=== PATIENT | male | born 1965 | race African-American/Black ===

== ENCOUNTER 2017-06-27 14:24 | Inpatient (IN) | payer OTHER ==
[2017-06-27 14:34] VITALS: BMI 36.9
--- NOTE | 2017-06-27 14:47 | PDOC ---
Attending Attestation - Resident Resident Name: Tuan Arzate - ED Attending Attestation I have performed the following: I have examined & evaluated the patient, The case was reviewed & discussed with the resident, I agree w/resident's findings & plan, Exceptions are as noted - HPI HPI: 06/27/17 14:46 Chest Pain - Physicial Exam PE: 06/27/17 14:46 VSS/NAD - Medical Decision Making 06/27/17 14:[address] Arzate's Assessment and Plan
[2017-06-27 15:30] LABS: BASO # 0.1 # (0.1-1); EOS # 0.2 # (0-4.5); EOS % 2.8 % (0-4.5); LYMPH # 2.9 (8-40); MCH 27.4 pg (25.7-33.7); MCHC 32.5 g/dl (32.0-35.9); MEAN CELL VOLUME 84.1 fl (80-96); MEAN PLT VOLUME 10.1 fl (7.5-11.1); MONO # 0.8 # (3.8-10.2); NEUT # 4.1 # (42.8-82.8); NEUT % 50.4 % (42.8-82.8); RDW 15.4 % (11.9-15.9); WHITE BLOOD COUNT 8.2 K/mm3 (4.0-10.0)
--- NOTE | 2017-06-27 15:46 | PDOC ---
History of Present Illness - General Chief Complaint: Chest Pain Stated Complaint: CHEST PAIN, LT ARM NUMBNESS Time Seen by Provider: 06/27/17 14:42 History Source: Patient Exam Limitations: No Limitations - History of Present Illness Initial Comments: 06/27/17 15:40 The patient is a 52M with a PMH of COPD and DM who presents to the ED with 3 days of CP which radiates to his L shoulder. He states that he also has night sweats along with mild SOB. He denies fever, chills, nausea, vomiting. Past History - Past Medical History Allergies/Adverse Reactions: Allergies Allergy/AdvReac Type Severity Reaction Status Date / Time No Known Allergies Allergy Verified 06/27/17 14:28 Home Medications: Ambulatory Orders Aspirin [ASA -] 81 mg PO DAILY 09/26/15 Asthma: Yes Cardiac Disorders: Yes (CO) COPD: Yes Diabetes: Yes - Immunization History Immunization Up to Date: Yes - Suicide/Smoking/Psychosocial Hx Smoking History: Never smoked Have you smoked in the past 12 months: No If you are a former smoker, when did you quit?: 4 years Information on smoking cessation initiated: No Hx Alcohol Use: No Drug/Substance Use Hx: No Substance Use Type: None Hx Substance Use Treatment: No Review of Systems - Review of Systems Able to Perform ROS?: Yes Comments:: 06/27/17 15:43 GENERAL/CONSTITUTIONAL: No fever or chills. No weakness. HEAD, EYES, EARS, NOSE AND THROAT: No change in vision. No ear pain or discharge. No sore throat. GASTROINTESTINAL: No nausea, vomiting, diarrhea, constipation, or abdominal pain. GENITOURINARY: No dysuria, frequency, hematuria, or change in urination. CARDIOVASCULAR: Positive for chest pain which radiates to his L shoulder. No palpitations or lightheadedness. RESPIRATORY: Positive for mild SOB. No cough, wheezing, or hemoptysis. MUSCULOSKELETAL: No joint or muscle swelling or pain. No neck or back pain. SKIN: No rash or lesions. NEUROLOGIC: No headache, numbness, tingling, weakness, loss of consciousness, or change in strength/sensation. ENDOCRINE: No increased thirst. No abnormal weight change. HEMATOLOGIC/LYMPHATIC: No anemia, easy bleeding, or history of blood clots. ALLERGIC/IMMUNOLOGIC: No hives or skin allergy. Is the patient limited Egyptian proficient: No *Physical Exam - Vital Signs Last Vital Signs Temp Pulse Resp BP Pulse Ox 98.2 F 70 20 140/78 97 06/27/17 14:29 06/27/17 14:29 06/27/17 14:29 06/27/17 14:29 06/27/17 14:29 - Physical Exam Comments: 06/27/17 15:44 GENERAL: Well developed, well nourished. Awake and alert. No acute distress. HEENT: Normocephalic, atraumatic. Hearing grossly normal. Moist mucous membranes. PERRLA, EOMI. NECK: Supple. Full ROM. No JVD. Carotid pulses 2+ and symmetric, without bruits. No thyromegaly. No lymphadenopathy. CARDIOVASCULAR: Regular rate and rhythm. No murmurs, rubs, or gallops. Distal pulses are 2+ and symmetric. PULMONARY: No evidence of respiratory distress. Lungs clear to auscultation bilaterally. No wheezing, rales or rhonchi. ABDOMINAL: Soft. Non-tender. Non-distended. No rebound or guarding. No organomegaly. Normoactive bowel sounds. GENITOURINARY: No CVA tenderness bilaterally. MUSCULOSKELETAL: Normal range of motion at all joints. No bony deformities or tenderness. EXTREMITIES: No cyanosis. No clubbing. No edema. No calf tenderness. SKIN: Warm and dry. Normal capillary refill. No rashes. No jaundice. NEUROLOGICAL: Alert, awake, appropriate. Cranial nerves 2-12 intact. Normal speech. Gait is normal without ataxia. PSYCHIATRIC: Cooperative. Good eye contact. Appropriate mood and affect. ED Treatment Course - LABORATORY CBC & Chemistry Diagram: 06/27/17 15:20 06/27/17 15:20 - ADDITIONAL ORDERS Additional order review: 06/27/17 15:20 RBC 5.95 H MCV 84.1 MCHC 32.5 RDW 15.4 D MPV 10.1 Neutrophils % 50.4 D Lymphocytes % 35.8 D Monocytes % 10.0 Eosinophils % 2.8 D Basophils % 1.0 - RADIOLOGY Radiology Studies Ordered: Category Date Time Status CHEST PA & LAT [RAD] Stat Radiology 06/27/17 14:53 Completed Medical Decision Making - Medical Decision Making 06/27/17 15:46 The patient is a 52M with a PMH of COPD and DM who presents to the ED with 3 days of worsening CP which radiates to his L shoulder. He added that he has a PMH of an NSTEMI and came in because he was worried he was having another heart attack. I have ordered CBC, CMP, cardiac profile, and CXR. Will monitor the patient and watch for labs/imaging. 06/27/17 15:48 CXR negative for acute pathology. 06/27/17 16:09 Troponin increased 0.22 from 0[address]16. Will page Dr. Haile, partner of Dr. Kilgore , his hoisting engine operator. 06/27/17 17:40 I have spoken with the patient who used to see Dr. Cherry. Paged Dr. Sung who is covering. *DC/Admit/Observation/Transfer Diagnosis at time of Disposition: NSTEMI (non-ST elevated myocardial infarction) - Discharge Dispostion Condition at time of disposition: Stable Admit: Yes - Referrals - Patient Instructions - Post Discharge Activity
[2017-06-27 15:47] LABS: ALBUMIN 3.4 g/dl (3.4-5.0); ANION GAP 9 (8-16); BILIRUBIN,TOTAL 0.6 mg/dL (0.2-1.0); CALCIUM 8.7 mg/dL (8.5-10.1); CO2 23 mmol/L (21-32); CREATININE 1.3 mg/dL (0.7-1.3); GLUCOSE,RANDOM 100 mg/dL (74-106); SGOT/AST 18 U/L (15-37); SGPT/ALT 54 U/L (12-78); TOT PROT 7.7 g/dl (6.4-8.2)
[2017-06-27] MEDS ORDERED: KETOROLAC TROMETHAMINE 30 MG/1 ML VIAL IVPUSH ONE (15:48)
[2017-06-27 15:50] LABS: ALK PHOS 69 U/L (45-117); CPK 472 IU/L (39-308); TROPONIN I 0.22 ng/ml (0.00-0.05)
[2017-06-27 15:52] LABS: PLATELET COMMENTS NO CLUMPING NOTED; PLATELET COUNT 217 K/MM3 (134-434); PLATELET ESTIMATE ADEQUATE
[2017-06-27] MEDS ORDERED: KETOROLAC TROMETHAMINE 30 MG/1 ML VIAL ONE (15:52)
[2017-06-27] MEDS ORDERED: ASPIRIN COATED 81 MG TABLET.EC PO ONE (16:08)
[2017-06-27] MEDS ORDERED: NITROGLYCERIN 2% OINTMENT - 1GM PACKET TD ONE ×2 (16:08→16:27)
[2017-06-27] MEDS ORDERED: METOPROLOL TARTRATE 25 MG TABLET (FP) PO ONE (16:13)
[2017-06-27] MEDS ORDERED: ASPIRIN 81 MG CHEWABLE TABLETS ONE (16:26)
[2017-06-27] MEDS ORDERED: METOPROLOL TARTRATE 25 MG TABLET (FP) ONE (16:27)
[2017-06-28] MEDS ORDERED: ACETAMINOPHEN 500 MG TABLET (FP) PO PRN (00:01)
[2017-06-28 03:00] LABS: URINE MARIJUANA THC NEGATIVE ng/ml (CUTOFF=50)
[2017-06-28] MEDS: ASPIRIN 81 MG CHEWABLE TABLETS PO SCH (09:23)
[2017-06-28] MEDS: METOPROLOL SUCCINATE 25 MG TAB.SR.24H (FP) PO SCH ×2 (09:27→21:02)
[2017-06-28] MEDS ORDERED: METOPROLOL TARTRATE 25 MG TABLET (FP) PO SCH (10:00)
--- NOTE | 2017-06-28 11:06 | HP ---
Admitting History and Physical - Primary Care Physician PCP: Marcel Cherry - Admission Chief Complaint: I'm having chest pain History of Present Illness: Mr Ramos is a pleasant 52 year old male who comes in with chest pain and shortness of breath. 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 He says he recently increased his dose to 400 units per week. He took his first increased dose last week. 3 days ago he began to note chest pain with shortness of breath. He notes it mainly on exertion. He has never experienced this before. He noted that it was worsening and over the 3 days and came in for further evaluation. Aside from this he is doing well and denies all other complaints. 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 History of Recent Travel: No Home Medications - Allergies Allergies/Adverse Reactions: Allergies Allergy/AdvReac Type Severity Reaction Status Date / Time No Known Allergies Allergy Verified 06/27/17 14:28 - Home Medications Home Medications: Ambulatory Orders Aspirin [ASA -] 81 mg PO DAILY 09/26/15 Family Disease History - Family Disease History Family Disease History: Heart Disease: Sister Review of Systems Findings/Remarks: Full review of systems obtained, as per HPI and otherwise negative Physical Examination Vital Signs: Vital Signs Temperature 36.6 C 06/28/17 08:00 Pulse Rate 83 06/28/17 08:00 Respiratory Rate 20 06/28/17 09:00 Blood Pressure 145/78 06/28/17 09:21 O2 Sat by Pulse Oximetry (%) 97 06/28/17 09:00 Constitutional: Yes: Well Nourished, No Distress, Calm Cardiovascular: Yes: Regular Rate and Rhythm. No: Gallop, Murmur, Rub Respiratory: Yes: Regular, CTA Bilaterally. No: Rales, Rhonchi, Wheezes Gastrointestinal: Yes: Normal Bowel Sounds, Soft. No: Distention, Tenderness Extremities: Yes: WNL Edema: No Labs: CBC, BMP 06/27/17 15:20 06/27/17 15:20 Imaging - Results Chest X-ray: Report Reviewed, Image Reviewed Problem List - Problems (1) NSTEMI (non-ST elevated myocardial infarction) Assessment/Plan: -with elevated troponins, chest pain, and shortness of breath -last ECHO/stress test done last year and reviewed -concerning since using non-prescription testosterone -admitted to telemetry -cardiology consulted -ECHO ordered -placed on aspirin and metoprolol -not on statin, history of rhabdo Code(s): I21.4 - NON-ST ELEVATION (NSTEMI) MYOCARDIAL INFARCTION
--- NOTE | 2017-06-28 13:11 | EKG ---
Test Reason : Blood Pressure : / mmHG Vent. Rate : 070 BPM Atrial Rate : 070 BPM P-R Int : 140 ms QRS Dur : 088 ms QT Int : 352 ms P-R-T Axes : 088 043 -04 degrees QTc Int : 380 ms NORMAL SINUS RHYTHM WITH SINUS ARRHYTHMIA POSSIBLE LEFT ATRIAL ENLARGEMENT BORDERLINE ECG WHEN COMPARED WITH ECG OF 26-SEP-2015 20:59, NO SIGNIFICANT CHANGE WAS FOUND Confirmed by MD Alan, Kaden ([id number]) on 06/28/2017 1:10:51 PM Referred By: Confirmed By:Kaden Phillips MD
--- NOTE | 2017-06-28 14:48 | CON.CARD ---
Cardiology Consult (text) - Consultation Consultation Note: CC: CP 52 yo with h/o impaired glucose tolerance, chronic ck elevation p/w chest pain and shortness of breath and noted to have intermediate troponin elevation. 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 He says he recently increased his dose to 400 units per week. He took his first increased dose last week. 3 days ago he began to note chest pain with shortness of breath. He notes it at rest. It worsens with exertion. Progressive worsening. No improvement with nitrates. CP persists. Not reproducible to palpation. CP not positional. Additionally notes progressive exertional desai. States that about 1 month ago he noticed limiting sob walking up one flight of stairs. Now experiencing exertional dyspnea associated with his chest discomfort. Symptoms even if walking a few feet. no cp, palps, dizziness, orthopnea, pnd, le edema. no recent infectious sx's. no f/c/s, n/v/d, myalgias, cough, congestion, rashes , visual disturbances, h/a. pmhx/Pshx: per hpi social hx: Former smoker fam hx: Mother of [place] in her 70's. Sister had bypass surgery at 57yo ros: per hpi Ambulatory Orders Aspirin [ASA -] 81 mg PO DAILY 09/26/15 Current Medications Acetaminophen (Tylenol -) 1,000 mg PO Q6H PRN PRN Reason: FEVER OR PAIN Last Admin: 06/28/17 09:22 Dose: 1,000 mg Aspirin (Asa -) 81 mg PO DAILY [facility] Last Admin: 06/28/17 09:23 Dose: 81 mg Metoprolol Succinate (Toprol Xl -) 25 mg PO BID [facility] Last Admin: 06/28/17 09:27 Dose: 25 mg Vital Signs - 24 hr 06/27/17 06/27/17 06/27/17 16:35 18:48 20:36 Temperature 98.2 F Pulse Rate Pulse Rate [ 59 L 71 Apical] Respiratory 16 16 Rate Blood Pressure Blood Pressure 132/84 146/79 [Left Arm] O2 Sat by Pulse 99 99 95 Oximetry (%) 06/27/17 06/27/17 06/28/17 21:00 23:05 08:00 Temperature 97.7 F 97.8 F 98 F Pulse Rate 68 62 83 Pulse Rate [ Apical] Respiratory 20 20 20 Rate Blood Pressure 154/87 147/65 162/100 Blood Pressure [Left Arm] O2 Sat by Pulse Oximetry (%) 06/28/17 06/28/17 06/28/17 09:00 09:18 09:21 Temperature Pulse Rate Pulse Rate [ Apical] Respiratory 20 Rate Blood Pressure 141/79 145/78 Blood Pressure [Left Arm] O2 Sat by Pulse 97 Oximetry (%) Intake & Output 06/26/17 06/27/17 06/28/17 06/29/17 07:59 07:59 07:59 07:59 Intake Total 400 520 Balance 400 520 Weight 265 lb nad, calm jvd flat, neck supple ctab, nl effort rrr nl s1, s2 no mrg non-displaced pmi. not ttp + bs soft nt nd + dp/pt, no carotid bruit aaox3 no jaundice, diaphoresis. CBC, BMP 06/27/17 15:20 06/27/17 15:20 Laboratory Tests 09/26/15 06/27/17 06/28/17 21:27 15:20 00:20 Total Bilirubin 0.6 AST 18 D ALT 54 D Alkaline Phosphatase 69 Creatine Kinase 472 H CK-MB (CK-2) 2.545 Troponin I 0.19 0.22 H D Albumin 3.4 Opiates Screen Negative Methadone Screen Negative Barbiturate Screen Negative Phencyclidine Screen Negative Ur Amphetamines Screen Negative MDMA (Ecstasy) Screen Negative Benzodiazepines Screen Negative Cocaine Screen Negative U Marijuana (THC) Screen Negative 06/28/17 06/28/17 00:20 07:45 Total Bilirubin AST ALT Alkaline Phosphatase Creatine Kinase CK-MB (CK-2) Troponin I 0.21 H 0.21 H Albumin Opiates Screen Methadone Screen Barbiturate Screen Phencyclidine Screen Ur Amphetamines Screen MDMA (Ecstasy) Screen Benzodiazepines Screen Cocaine Screen U Marijuana (THC) Screen ekg 06/2017: sr, no ischemic changes. tele: sr Echo 09/2015: Nl LV/RV, mild-mod MR/TR, RVSP 30-40 Stress 09/2015: 10.4 METS. Non-specific ST abnormalities. Small inf fixed defct with nl wall motion (diaphragmatic attenuation) EF 55% Angio 2009 S[facility]: Vgram EF 60%. Nl wall motion. No , No MR. patent LM, LAD, LCx. 40% oRCA, relieved by IC NTG but also thought to have partial CAD component cxr: wnl 52 yo with h/o anabolic steroid/testosterone use, impaired glucose tolerance, chronic ck elevation p/w chest pain and shortness of breath and noted to have intermediate troponin elevation. cp/sob - progressive sx's with exertional component. ekg without ischemic changes. troponin elevation intermediate with flat trend and similar to prior levels from 2016. - echo to rule out structural abnormalities. stress test to evaluate for ischemia. - h/o vasospasm and mild cad on prior cardiac catheterization. no improvement in cp with nitrates or beta sacha. can consider trial of nifedipine after stress testing in case sx's are 2/2 vasospasm. - d-dimer to rule out PE - con't asa. repeat cpk and consider addition of statin. - counseled on cessation of testosterone supplementation. htn - patient doesn't have diagnosis, but states recent home bp's have been in the 160's. medications as above.
[2017-06-29 09:07] LABS: BASO # 0.1 # (0.1-1); EOS # 0.3 # (0-4.5); EOS % 3.5 % (0-4.5); LYMPH # 3.1 (8-40); MCH 27.1 pg (25.7-33.7); MEAN CELL VOLUME 84.9 fl (80-96); MEAN PLT VOLUME 10.2 fl (7.5-11.1); MONO # 0.6 # (3.8-10.2); NEUT # 4.6 # (42.8-82.8); NEUT % 52.6 % (42.8-82.8); PLATELET COUNT 217 K/MM3 (134-434); RDW 15.8 % (11.9-15.9); WHITE BLOOD COUNT 8.7 K/mm3 (4.0-10.0)
[2017-06-29 09:09] LABS: ANION GAP 7 (8-16); CALCIUM 8.3 mg/dL (8.5-10.1); CO2 26 mmol/L (21-32); GLUCOSE,RANDOM 116 mg/dL (74-106)
[2017-06-29 09:10] LABS: CREATININE 1.2 mg/dL (0.7-1.3); PHOSPHOROUS 2.6 mg/dL (2.5-4.9)
[2017-06-29] MEDS: ASPIRIN 81 MG CHEWABLE TABLETS PO SCH (14:16)
[2017-06-29] MEDS: NIFEdipine E.R. 30 MG TABLET (FP) PO SCH (14:16)
--- NOTE | 2017-06-29 14:53 | PN ---
Progress Note (short form) - Note Progress Note: CC: CP S: stress test today. no cp (described as burning) during test, but returned immediately upon stopping. Feels his desai slightly better today. no palps, dizziness. Current Medications Acetaminophen (Tylenol -) 1,000 mg PO Q6H PRN PRN Reason: FEVER OR PAIN Last Admin: 06/28/17 09:22 Dose: 1,000 mg Aspirin (Asa -) 81 mg PO DAILY [facility] Last Admin: 06/29/17 14:16 Dose: 81 mg Nifedipine (Procardia Xl -) 30 mg PO DAILY [facility] Last Admin: 06/29/17 14:16 Dose: 30 mg Vital Signs - 24 hr 06/28/17 06/29/17 06/29/17 20:51 01:57 06:00 Temperature 97.5 F L 97.8 F 98.1 F Pulse Rate 61 59 L 60 Respiratory 16 16 16 Rate Blood Pressure 136/52 133/59 129/59 O2 Sat by Pulse 96 Oximetry (%) 06/29/17 06/29/17 06/29/17 08:00 08:55 14:00 Temperature 98 F 98 F Pulse Rate 58 L 70 Respiratory 20 20 20 Rate Blood Pressure 130/67 143/89 O2 Sat by Pulse 96 Oximetry (%) Intake & Output 06/27/17 06/28/17 06/29/17 06/30/17 07:59 07:59 07:59 07:59 Intake Total 400 780 Balance 400 780 Weight 265 lb nad, calm jvd flat, neck supple ctab, nl effort rrr nl s1, s2 no mrg non-displaced pmi. not ttp + bs soft nt nd + dp/pt, no carotid bruit aaox3 no jaundice, diaphoresis. CBC, BMP 06/29/17 06:00 06/29/17 06:00 Laboratory Tests 06/29/17 06/29/17 06:00 07:45 Magnesium 2.0 Creatine Kinase 274 06/29/17 07:45 D-Dimer 211 ekg 06/2017: sr, no ischemic changes. tele: sr/sb echo 06/2017: nl wall thickness. nl lv/rv size/fn. 1+ lae. mild-mod mr. 1+ tr Echo 09/2015: Nl LV/RV, mild-mod MR/TR, RVSP 30-40 stress test: 10.1 METS. no ischemic ekg changes. moderate sized mild intensity inferior wall ischemia. mild global HK. Mildly depressed EF 46%. Stress 09/2015: 10.4 METS. Non-specific ST abnormalities. Small inf fixed defct with nl wall motion (diaphragmatic attenuation) EF 55% Angio 2009 [facility]: Vgram EF 60%. Nl wall motion. No , No MR. patent LM, LAD, LCx. 40% oRCA, relieved by IC NTG but also thought to have partial CAD component cxr: wnl 52 yo with h/o anabolic steroid/testosterone use, impaired glucose tolerance, chronic ck elevation p/w chest pain and shortness of breath and noted to have intermediate troponin elevation. cp/sob - progressive sx's with exertional component. ekg without ischemic changes. troponin elevation in "intermediate range" with flat trend and similar to prior levels from 2016. - echo without significant structural abnormalities. - d-dimer wnl - counseled on cessation of testosterone supplementation. - h/o vasospasm and mild cad on prior cardiac catheterization. no improvement in cp here with nitrates or beta sacha. started nifedipine today. - 06/29 stress test with mild inferior ischemia. However, post stress EF noted to be mildly depressed which may indicate more extensive disease. Discussed findings with patient and interventionalist. Plan for transfer to [facility] for cath. Con't nifedipine as anti-anginal - con't asa. add plavix. repeat cpk wnl, will start statin. htn - patient doesn't have diagnosis, but states recent home bp's have been in the 160's. medications as above, with outpatient follow up for titration.
--- NOTE | 2017-06-29 15:10 | PN ---
Progress Note, Physician Chief Complaint: Mr Ramos is without complaint. No cp, sob, n/v. - Current Medication List Current Medications: Active Medications Acetaminophen (Tylenol -) 1,000 mg PO Q6H PRN PRN Reason: FEVER OR PAIN Last Admin: 06/28/17 09:22 Dose: 1,000 mg Aspirin (Asa -) 81 mg PO DAILY [facility] Last Admin: 06/29/17 14:16 Dose: 81 mg Nifedipine (Procardia Xl -) 30 mg PO DAILY [facility] Last Admin: 06/29/17 14:16 Dose: 30 mg - Objective Vital Signs: Vital Signs Temperature 36.6 C 06/29/17 14:00 Pulse Rate 70 06/29/17 14:00 Respiratory Rate 20 06/29/17 14:00 Blood Pressure 143/89 06/29/17 14:00 O2 Sat by Pulse Oximetry (%) 96 06/29/17 08:00 Constitutional: Yes: Well Nourished, No Distress, Calm Cardiovascular: Yes: Regular Rate and Rhythm. No: Gallop, Murmur, Rub Respiratory: Yes: Regular, CTA Bilaterally. No: Rales, Rhonchi, Wheezes Gastrointestinal: Yes: Normal Bowel Sounds, Soft. No: Distention, Tenderness Extremities: Yes: WNL Edema: No Labs: CBC, BMP 06/29/17 06:00 06/29/17 06:00 Problem List - Problems (1) NSTEMI (non-ST elevated myocardial infarction) Assessment/Plan: -ECHO performed and normal -stress test performed showing decreased EF with reversible defect -patient has history of coronary vasospasm -will await cardiology recommendation on if patient to be transferred for cardiac catheterization or if this is c/w coronary vasospasm Code(s): I21.4 - NON-ST ELEVATION (NSTEMI) MYOCARDIAL INFARCTION
[2017-06-30] MEDS: ASPIRIN 81 MG CHEWABLE TABLETS PO SCH (09:39)
[2017-06-30] MEDS: NIFEdipine E.R. 30 MG TABLET (FP) PO SCH (09:39)
[2017-06-30] MEDS ORDERED: CLOPIDOGREL BISULFATE 75 MG TABLET (FP) PO SCH (10:00)
[2017-06-30 10:03] VITALS: BP 117/60; PULSE 55; TEMP 98
--- NOTE | 2017-06-30 10:34 | DS ---
Physical Examination Vital Signs: Vital Signs Temperature 36.7 C 06/30/17 10:00 Pulse Rate 55 L 06/30/17 10:00 Respiratory Rate 18 06/30/17 10:00 Blood Pressure 117/60 06/30/17 10:00 O2 Sat by Pulse Oximetry (%) 95 06/30/17 09:00 Constitutional: Yes: Well Nourished, No Distress, Calm Cardiovascular: Yes: Regular Rate and Rhythm. No: Gallop, Murmur, Rub Respiratory: Yes: Regular, CTA Bilaterally. No: Rales, Rhonchi, Wheezes Gastrointestinal: Yes: Normal Bowel Sounds, Soft. No: Distention, Tenderness Extremities: Yes: WNL Edema: No Labs: CBC, BMP 06/29/17 06:00 06/29/17 06:00 Discharge Summary Reason For Visit: NON-ST ELEVATION (NSTEMI) MYOCARDIAL INFRACTION Current Active Problems NSTEMI (non-ST elevated myocardial infarction) (Acute) Hospital Course: Mr Ramos is a very pleasant 52 year old male who comes in with chest pain. He was admitted to the hospital and had elevated troponins consistent with NSTEMI. He was monitored on telemetry and seen by cardiology. There was concern secondary to his off label testosterone use. He underwent ECHO which was normal , however his stress test was positive. Case d/w cardiology and patient and he is transferred to [place] for cardiac catheterization. Condition: Stable - Instructions Disposition: TRANSFER ACUTE CARE/OTHER HOSP - Home Medications Comprehensive Discharge Medication List: Ambulatory Orders Aspirin [ASA -] 81 mg PO DAILY 09/26/15
--- NOTE | 2017-06-30 11:42 | PN ---
Progress Note (short form) - Note Progress Note: S: same cp (described as burning) overnight, no palps, dizziness, sob Current Medications Generic Name Dose Route Start Last Admin Trade Name Sukhwinder PRN Reason Stop Dose Admin Acetaminophen 1,000 mg 06/28/17 00:01 06/28/17 09:22 Tylenol - PO 1,000 mg Q6H PRN Administration FEVER OR PAIN Aspirin 81 mg 06/28/17 10:00 06/30/17 09:39 Asa - PO 81 mg DAILY [facility] Administration Atorvastatin Calcium 40 mg 06/30/17 22:00 Lipitor - PO HS [facility] Clopidogrel Bisulfate 75 mg 06/30/17 10:00 06/30/17 09:39 Plavix - PO 75 mg DAILY [facility] Administration Nifedipine 30 mg 06/29/17 14:00 06/30/17 09:39 Procardia Xl - PO 30 mg DAILY [facility] Administration Vital Signs Period Temp Pulse Resp BP Sys/Wooten Pulse Ox Last 24 Hr 97.6 F-98.0 F 54-70 18-20 107-145/44-89 95-95 nad, calm jvd flat, neck supple ctab, nl effort rrr nl s1, s2 no mrg + bs soft nt nd aaox3 no jaundice, diaphoresis. CBC, BMP 06/29/17 06:00 06/29/17 06:00 ekg 06/2017: sr, no ischemic changes. tele: sr/sb echo 06/2017: nl wall thickness. nl lv/rv size/fn. 1+ lae. mild-mod mr. 1+ tr Echo 09/2015: Nl LV/RV, mild-mod MR/TR, RVSP 30-40 stress test: 10.1 METS. no ischemic ekg changes. moderate sized mild intensity inferior wall ischemia. mild global HK. Mildly depressed EF 46%. Stress 09/2015: 10.4 METS. Non-specific ST abnormalities. Small inf fixed defct with nl wall motion (diaphragmatic attenuation) EF 55% Angio 2009 [facility]: Vgram EF 60%. Nl wall motion. No , No MR. patent LM, LAD, LCx. 40% oRCA, relieved by IC NTG but also thought to have partial CAD component cxr: wnl 52 yo with h/o anabolic steroid/testosterone use, impaired glucose tolerance, chronic ck elevation p/w chest pain and shortness of breath and noted to have intermediate troponin elevation. cp/sob - progressive sx's with exertional component. ekg without ischemic changes. troponin elevation in "intermediate range" with flat trend and similar to prior levels from 2016. - echo without significant structural abnormalities. - d-dimer wnl - counseled on cessation of testosterone supplementation. - h/o vasospasm and mild cad on prior cardiac catheterization. no improvement in cp here with nitrates or beta sacha. started nifedipine today. - 06/29 stress test with mild inferior ischemia. However, post stress EF noted to be mildly depressed which may indicate more extensive disease. Discussed findings with patient and interventionalist. Plan for transfer to [facility] for cath. Con't nifedipine as anti-anginal - con't asa. add plavix. repeat cpk wnl, started statin. htn - patient doesn't have diagnosis, but states recent home bp's have been in the 160's. medications as above, with outpatient follow up for titration.
[2017-06-30] MEDS ORDERED: ATORVASTATIN CA 40 MG TABLET (FP) PO SCH (22:00)
== END 2017-06-30 12:01 | disposition short-term general hospital (02) | DRG 190 ==
LOC: JER 14:24 → JERBED 17:55 → J4S 22:47
PROVIDERS: ADMIT Internal Medicine Geriatric Medicine; ATTEND Internal Medicine Geriatric Medicine
DX: I21.4 Non-ST elevation (NSTEMI) myocardial infarction (principal); E11.9 Type 2 diabetes mellitus without complications; J44.9 Chronic obstructive pulmonary disease, unspecified; I25.2 Old myocardial infarction; Z87.891 Personal history of nicotine dependence
CPT/HCPCS: 36415; 71020-TC; 78452-TC; 80048; 80053; 80307; 82550; 82553; 83735; 84100; 84484; 85025; 85379; 93005; 93010; 93017; 93306-TC; 99284-25; A9502; C1887

== ENCOUNTER 2017-10-23 21:30 | Inpatient (IN) | payer OTHER ==
[2017-10-23] MEDS ORDERED: NITROGLYCERIN SUBLINGUAL 1/150 0.4 MG TAB SL ONE (23:11)
[2017-10-23] MEDS ORDERED: NITROGLYCERIN SUBLINGUAL 1/150 0.4 MG TAB ONE (23:18)
--- NOTE | 2017-10-23 23:22 | PDOC ---
History of Present Illness - General History Source: Patient Exam Limitations: No Limitations - History of Present Illness Initial Comments: 10/23/17 23:41 The patient is a 52 year old male with a significant past medical history of NSTEMI (06/2017), Rhabdo, and COPD who presents to the ED with complaints of chest pain for one week. Patient reports progressively worsening left sided chest pain. He states he went to [facility] ED 2 days ago for a COPD exacerbation, got an albuterol treatment and was discharged home on prednisone. Patient states his chest pain is sharp and notes he developed shortness of breath earlier today. 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 He states he had an NSTEMI in June of 2017, and was also found to have a clot in his lung. He was prescribed nifedipine but he stopped taking it. Denies cough. Denies palpitations. Denies nausea, vomiting, or diarrhea. Denies dysuria or change in urinary output. Denies any other symptoms. <Bill Briseno - Last Filed: 10/23/17 23:41> <Trinity Werner - Last Filed: 10/24/17 06:10> - General Chief Complaint: Chest Pain Stated Complaint: CHEST PAIN Time Seen by Provider: 10/23/17 23:09 Past History <Bill Briseno - Last Filed: 10/23/17 23:41> - Past Medical History Asthma: Yes Cardiac Disorders: Yes ([place], cardiac cath) COPD: Yes DVT: No Diabetes: Yes Other medical history: PE - Immunization History Immunization Up to Date: Yes - Suicide/Smoking/Psychosocial Hx Smoking History: Former smoker Have you smoked in the past 12 months: No If you are a former smoker, when did you quit?: 2007 Information on smoking cessation initiated: No Hx Alcohol Use: No Drug/Substance Use Hx: No Substance Use Type: None Hx Substance Use Treatment: No <Trinity Werner - Last Filed: 10/24/17 06:10> - Past Medical History Allergies/Adverse Reactions: Allergies Allergy/AdvReac Type Severity Reaction Status Date / Time No Known Allergies Allergy Verified 06/27/17 14:28 Home Medications: Ambulatory Orders Aspirin [ASA -] 81 mg PO DAILY 09/26/15 Nifedipine PO DAILY 10/24/17 predniSONE 2 tab PO DAILY 10/24/17 Review of Systems - Review of Systems Able to Perform ROS?: Yes Comments:: 10/23/17 23:42 CONSTITUTIONAL: Absent: fever, chills, diaphoresis, generalized weakness, malaise, loss of appetite HEENT: Absent: rhinorrhea, nasal congestion, throat pain, throat swelling, difficulty swallowing, mouth swelling, ear pain, eye pain, visual Changes CARDIOVASCULAR: + chest pain, shortness of breath Absent: syncope, palpitations, irregular heart rate, lightheadedness, peripheral edema RESPIRATORY: Absent: cough, dyspnea with exertion, orthopnea, wheezing, stridor, hemoptysis GASTROINTESTINAL: Absent: abdominal pain, abdominal distension, nausea, vomiting, diarrhea, constipation, melena, hematochezia GENITOURINARY: Absent: dysuria, frequency, urgency, hesitancy, hematuria, flank pain, genital pain MUSCULOSKELETAL: Absent: myalgia, arthralgia, joint swelling SKIN: Absent: rash, itching, pallor HEMATOLOGIC/IMMUNOLOGIC: Absent: easy bleeding, easy bruising, lymphadenopathy, frequent infections ENDOCRINE: Absent: unexplained weight gain, unexplained weight loss, heat intolerance, cold intolerance NEUROLOGIC: Absent: headache, focal weakness or paresthesias, dizziness, unsteady gait, seizure, mental status changes, bladder or bowel incontinence PSYCHIATRIC: Absent: anxiety, depression, suicidal or homicidal ideation, hallucinations. All Other Systems: Reviewed and Negative <Bill Briseno - Last Filed: 10/23/17 23:41> *Physical Exam - Vital Signs Last Vital Signs Temp Pulse Resp BP Pulse Ox 98.1 F 80 20 162/76 100 10/23/17 21:31 10/23/17 21:31 10/23/17 21:31 10/23/17 21:31 10/23/17 21:31 - Physical Exam Comments: 10/23/17 23:42 GENERAL: Well developed, well nourished. Awake and alert. No acute distress. HEENT: Normocephalic, atraumatic. PERRLA, EOMI. No conjunctival pallor. Sclera are non- icteric. Moist mucous membranes. Oropharynx is clear. NECK: Supple. Full ROM. No JVD. Carotid pulses 2+ and symmetric, without bruits. No thyromegaly. No lymphadenopathy. CARDIOVASCULAR: Regular rate and rhythm. No murmurs, rubs, or gallops. Distal pulses are 2+ and symmetric. PULMONARY: No evidence of respiratory distress. Lungs clear to auscultation bilaterally. No wheezing, rales or rhonchi. ABDOMINAL: Soft. Non-tender. Non-distended. No rebound or guarding. No organomegaly. Normoactive bowel sounds. MUSCULOSKELETAL Normal range of motion at all joints. No bony deformities or tenderness. No CVA tenderness. EXTREMITIES: No cyanosis. No clubbing. No edema. No calf tenderness. SKIN: Warm and dry. Normal capillary refill. No rashes. No jaundice. NEUROLOGICAL: Alert, awake, appropriate. Cranial nerves 2-12 intact. No deficits to light touch and temperature in face, upper extremities and lower extremities. No motor deficits in the in face, upper extremities and lower extremities. Normoreflexic in the upper and lower extremities. Normal speech. Toes are down- going bilaterally. Gait is normal without ataxia. PSYCHIATRIC: Cooperative. Good eye contact. Appropriate mood and affect. <Bill Briseno - Last Filed: 10/23/17 23:41> - Vital Signs Last Vital Signs Temp Pulse Resp BP Pulse Ox 98.1 F 80 20 162/76 100 10/23/17 21:31 10/23/17 21:31 10/23/17 21:31 10/23/17 21:31 10/23/17 21:31 <Trinity Werner - Last Filed: 10/24/17 06:10> Heart Score/ECG Review #1 10/23/17 23:42 Vent. rate 67 bpm WA interval 152 ms QRS duration 92 ms same as old ECG on 06/17/17 Normal sinus rhythm inferior flat flipped Ts Reported by: Dr. Werner <Bill Briseno - Last Filed: 10/23/17 23:41> ED Treatment Course - LABORATORY CBC & Chemistry Diagram: 10/23/17 23:15 10/23/17 23:15 - Medications Given in the ED: ED Medications Discontinued Medications Generic Name Dose Route Start Last Admin Trade Name Freq PRN Reason Stop Dose Admin Nitroglycerin 0.4 mg 10/23/17 23:11 10/23/17 23:31 Nitrostat - SL 10/23/17 23:12 0.4 mg ONCE ONE Administration <Bill Briseno - Last Filed: 10/23/17 23:41> - LABORATORY CBC & Chemistry Diagram: 10/23/17 23:15 10/23/17 23:15 - RADIOLOGY Radiology Studies Ordered: Category Date Time Status CHEST PA & LAT [RAD] Stat Radiology 10/23/17 23:11 Ordered <Trinity Werner - Last Filed: 10/24/17 06:10> Medical Decision Making - Medical Decision Making 10/24/17 06:08 Pt comes with atypical stickinf Left sided CP. He states that the pain is ongoing for a week and getting progressively worse. He felt like this in Dec when he had an NSTEMI; today + troponin; no change in EKG. 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 States that he no longer uses the stuff. 10/24/17 06:10 Pt will be admitted to his PMDs service and he will be teated with asa, plavix, lovenox and metoprolol. He received Nitro SL on arrival. <Trinity Werner - Last Filed: 10/24/17 06:10> *DC/Admit/Observation/Transfer - Attestations Scribe Attestion: 10/23/17 23:42 Documentation prepared by Bill Briseno, acting as medical planner for Trinity Werner MD <Bill Briseno - Last Filed: 10/23/17 23:41> - Discharge Dispostion Admit: Yes <Trinity Werner - Last Filed: 10/24/17 06:10> Diagnosis at time of Disposition: NSTEMI (non-ST elevated myocardial infarction), Chest pain - Discharge Dispostion Condition at time of disposition: Guarded
[2017-10-23 23:44] LABS: BASO % 0.4 % (0-2.0); EOS % 0.9 % (0-4.5); HEMATOCRIT 40.5 % (35.4-49); HEMOGLOBIN 13.7 GM/dL (11.7-16.9); LYMPH % 35.1 % (8-40); MCH 29.4 pg (25.7-33.7); MCHC 33.8 g/dl (32.0-35.9); MEAN CELL VOLUME 87.2 fl (80-96); MEAN PLT VOLUME 10.5 fl (7.5-11.1); NEUT % 54.6 % (42.8-82.8); PLATELET COUNT 183 K/MM3 (134-434); RBC 4.64 M/mm3 (4.00-5.60); RDW 14.3 % (11.9-15.9); WHITE BLOOD COUNT 12.5 K/mm3 (4.0-10.0)
[2017-10-24 00:01] LABS: INR 1.01 (0.82-1.09); PROTHROMBIN TIME (PATIENT) 11.4 SEC (9.98-11.88)
[2017-10-24 00:12] LABS: ALBUMIN 3.8 g/dl (3.4-5.0); ALK PHOS 80 U/L (45-117); ANION GAP 9 (8-16); BILIRUBIN,TOTAL 0.2 mg/dL (0.2-1.0); BLOOD UREA NITROGEN 17 mg/dL (7-18); CALCIUM 8.6 mg/dL (8.5-10.1); CHLORIDE 104 mmol/L (98-107); CO2 27 mmol/L (21-32); CREATININE 1.4 mg/dL (0.7-1.3); GLUCOSE,RANDOM 166 mg/dL (74-106); POTASSIUM 3.6 mmol/L (3.5-5.1); SGOT/AST 27 U/L (15-37); SGPT/ALT 63 U/L (12-78); SODIUM 140 mmol/L (136-145); TOT PROT 7.6 g/dl (6.4-8.2)
[2017-10-24] MEDS ORDERED: ASPIRIN 81 MG CHEWABLE TABLETS PO ONE (01:08)
[2017-10-24] MEDS ORDERED: CLOPIDOGREL BISULFATE 300 MG TABLET PO ONE (01:08)
[2017-10-24] MEDS ORDERED: METOPROLOL TARTRATE 50 MG TABLET (FP) PO ONE (01:11)
[2017-10-24] MEDS ORDERED: ASPIRIN COATED 81 MG TABLET.EC ONE (01:13)
[2017-10-24] MEDS ORDERED: CLOPIDOGREL BISULFATE 300 MG TABLET ONE (01:13)
[2017-10-24] MEDS ORDERED: METOPROLOL TARTRATE 50 MG TABLET (FP) ONE (01:17)
[2017-10-24 02:36] LABS: CHOLESTEROL 193 mg/dL (50-200); HDL CHOLESTEROL 50 mg/dL (40-60); TRIGLYCERIDES 180 mg/dL (35-160)
[2017-10-24 04:16] VITALS: BMI 34.5
[2017-10-24] MEDS ORDERED: NITROGLYCERIN SUBLINGUAL 1/150 0.4 MG TAB SL PRN (06:38)
--- NOTE | 2017-10-24 08:34 | CON.CARD ---
Consult Consult Specialty:: cardio - History of Present Illness Chief Complaint: cp History of Present Illness: 52 yo male here with cp and sob. describes "burning" discomfort L pectoral that sometimes travels up to near clavicle. same as he had in 06/19. says it never goes away, just waxes and wanes in intensity. has complied with nifedipine with no improvement in sx's. took 2 wks PPI trial when discharged from [facility]--doesn't think this helped sx but can't recall exactly. says he often notices that turning to his left side or reaching R arm across his body can trigger the pain. when he's feeling it, he can make it worse with very deep breath--but otherwise no pleuritic cp noted. he exercises vigorously. he began to notice sob with exercise limiting his stamina around 05/20 or so, when he put on weight after having started testosterone injections in 03/20. he stopped the testosterone 05/20 and never resumed it he says, including presently. he thinks his exercise tolerance has gone down further in the past few months-- lost some wt and the sob seems to be improving a bit. 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 also notices his HR speeds up very fast during exercise, which it didn't used to. denies acid reflux or bloating sx's. here 06/19 with atypical CP, bland troponins, normal ECG, + inferior ischemia on MPI. had cath at [facility] showing normal cor.s with no vasospasm, but overall slow flow of ? etiology. CTA chest done which was NEGATIVE FOR PE. sent home with ASA, nifedipine and 2 wk PPI trial. had nonspecific minimal ground glass on CT chest ? inflammation--rec'd f/u as outpt sees us in the office. 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 History of Recent Travel: No Home Medications - Allergies Allergies/Adverse Reactions: Allergies Allergy/AdvReac Type Severity Reaction Status Date / Time No Known Allergies Allergy Verified 06/27/17 14:28 - Home Medications Home Medications: Ambulatory Orders Aspirin [ASA -] 81 mg PO DAILY 09/26/15 Nifedipine PO DAILY 10/24/17 predniSONE 2 tab PO DAILY 10/24/17 Family Disease History - Family Disease History Family Disease History: Heart Disease: Sister Review of Systems - Review of Systems Constitutional: denies: Chills, Fever Eyes: denies: Eye Pain HENT: denies: Nasal Congestion Neck: denies: Stiffness Cardiovascular: denies: Palpitations Respiratory: denies: Orthopnea, PND Gastrointestinal: denies: Diarrhea, Rectal Bleeding Genitourinary: denies: Burning, Hematuria Musculoskeletal: denies: Muscle Pain Integumentary: denies: Rash Neurological: denies: Numbness, Seizure, Syncope Endocrine: denies: Excessive Sweating Hematology/Lymphatic: denies: Excessive Bleeding Vital Signs: Vital Signs Temperature 97.8 F 10/24/17 06:00 Pulse Rate 46 L 10/24/17 06:00 Respiratory Rate 16 10/24/17 06:00 Blood Pressure 120/69 10/24/17 06:00 O2 Sat by Pulse Oximetry (%) 97 10/24/17 03:45 Constitutional: Yes: Well Nourished, No Distress Eyes: No: Sclera Icterus HENT: No: Nasal Congestion Neck: No: Decreased ROM Respiratory: Yes: CTA Bilaterally. No: Accessory Muscle Use, Rales, Wheezes Gastrointestinal: Yes: Normal Bowel Sounds. No: Distention, Hepatomegaly, Palpable Mass, Tenderness Cardiovascular: Yes: Regular Rate and Rhythm, Other (point tenderness over L upper costochondral joing--reproduces the pain) JVD: No Carotid Bruit: No PMI: Non-Displaced Heart Sounds: Yes: S1, S2. No: Gallop Murmur: No: Systolic Murmur, Diastolic Murmur Musculoskeletal: Yes: Other (No kyphosis) Extremities: No: Cool, Cyanosis Edema: No Peripheral Pulses: 2+ Left Carotid, 2+ Right Carotid, 2+ Left Doralis Pedis, 2+ Right Dorsalis Pedis Integumentary: No: Jaundice Neurological: Yes: Alert, Oriented (x3) Psychiatric: No: Agitated - Other Data Labs, Other Data: CBC, BMP 10/23/17 23:15 10/23/17 23:15 INR, PTT INR 1.01 (0.82-1.09) 10/23/17 23:15 Troponin, BNP 10/23/17 10/24/17 23:15 02:06 Troponin I 0.12 H D 0.12 H Troponin, BNP 10/23/17 10/24/17 23:15 02:06 Troponin I 0.12 H D 0.12 H Laboratory Tests 10/23/17 10/23/17 10/23/17 23:15 23:15 23:15 WBC 12.5 H D Hgb 13.7 D Plt Count 183 Sodium 140 Potassium 3.6 Carbon Dioxide 27 BUN 17 D Creatinine 1.4 H AST 27 D ALT 63 Creatine Kinase 1049 H Creatine Kinase Index CK-MB (CK-2) Troponin I 0.12 H D Triglycerides Cholesterol Total LDL Cholesterol HDL Cholesterol 10/24/17 10/24/17 02:06 02:06 WBC Hgb Plt Count Sodium Potassium Carbon Dioxide BUN Creatinine AST ALT Creatine Kinase 949 H Creatine Kinase Index 0.2 CK-MB (CK-2) 2.344 Troponin I 0.12 H Triglycerides 180 H D Cholesterol 193 Total LDL Cholesterol 125 H HDL Cholesterol 50 Assessment/Plan Echo 06/2017: nl wall thickness. nl lv/rv size/fn. 1+ lae. mild-mod mr. Echo 09/2015: Nl LV/RV, mild-mod MR/TR, RVSP 30-40 MPI 06/19: 10.1 METS. no ischemic ekg changes. moderate sized mild intensity inferior wall ischemia. mild global HK. Mildly depressed EF 46%. MPI 09/2015: 10.4 METS. Non-specific ST abnormalities. Small inf fixed defct with nl wall motion (diaphragmatic attenuation) EF 55% [facility] 06/19 ([facility]): normal coronaries. no coronary vasospasm seen. [facility] 2009 S[facility]: Vgram EF 60%. patent LM, LAD, LCx. 40% oRCA, relieved by IC NTG but also thought to have partial CAD component ECG (10/23): NSR, nrl axis, no path q's. NSST-Ts inferior leads not signif changed vs prior (lead II now inverted T as well). lateral leads baseline wander artifact, T's upright CXR: clear lungs/pleura tele: NSR with sinus marylou 50s bpm during day, to 40s overnight/early am hours atypical chest pain - suspect mskel (possibly costochondritis) given strong mskel features and reproducible with point tenderness. - rec 3 days of RTC ibuprofen to observe sx response - here 06/19 with identical sx's with no ACS then, stress test inferior ischemia --sx's did not respond to nifedipine added then. - h/o vasospasm (and mild CAD) in RCA on remote cath 2009. no vasospasm seen on rajat cath 06/19. - clearly slow coronary blood flow subjectively on prior cor angiogram at [facility]- -? microvascular obstruction related to endothelial dysfunction, ? hyperviscosity related to testosterone use-->incr erythropoeisis (H/H was here last visit). has remained off testosterone and H/H currently in normal range. - would not start statin at present for possibility of microvascular endothelial dysfunction given pt not clearly symptomatic from this, and his h/o widely fluctuating mskel CPKs due to vigorous exercise will confound statin f/ u. can reconsider in future in office (d/w'd pt today) - baseline troponins 0.1-0.2 chronically--unchanged here. no ECG changes here. CLINICAL PICTURE NOT C/W ACS - if cp continues despite NSAID trial, rec f/u with PMD re: ? 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 - on CCB for vasospasm prophylaxis - bp good here, same meds copd: - recent a.e., rx'd steroids [facility] - ground glass infiltrates on CT chest 06/19 at [facility]--should have pulmonary followup as outpt for PFTs and ? CT chest f/u (was not done at [facility]'s he says) - d/w'd pt who understands this plan IFG/DM: - A1c 6.4% here 2016 - on metformin in past, diet controlled of late - f/u with pmd OK FOR D/C FROM [facility] P.O.V.
[2017-10-24 09:17] LABS: ANION GAP 4 (8-16); BLOOD UREA NITROGEN 16 mg/dL (7-18); CALCIUM 8.1 mg/dL (8.5-10.1); CHLORIDE 106 mmol/L (98-107); CO2 29 mmol/L (21-32); CREATININE 1.3 mg/dL (0.7-1.3); GLUCOSE,RANDOM 163 mg/dL (74-106); POTASSIUM 3.8 mmol/L (3.5-5.1); SODIUM 139 mmol/L (136-145)
[2017-10-24] MEDS ORDERED: PT OWN MED DRAWER 7, Y5N ONE (09:48)
[2017-10-24] MEDS ORDERED: BUDESONIDE/FORMETEROL FUMARATE 80/4.5 mcg INHALER IH SCH (10:00)
[2017-10-24] MEDS ORDERED: ASPIRIN 81 MG CHEWABLE TABLETS PO SCH (10:00)
[2017-10-24] MEDS ORDERED: ENOXAPARIN NA (PORCINE) 120 MG/0.8 ML DISP.SYRIN SQ SCH ×2 (10:00)
[2017-10-24 10:44] VITALS: BP 127/59; PULSE 52; TEMP 98.2
--- NOTE | 2017-10-24 11:06 | EKG ---
Test Reason : Blood Pressure : / mmHG Vent. Rate : 067 BPM Atrial Rate : 067 BPM P-R Int : 152 ms QRS Dur : 092 ms QT Int : 382 ms P-R-T Axes : 063 000 -27 degrees QTc Int : 403 ms NORMAL SINUS RHYTHM WITH SINUS ARRHYTHMIA NONSPECIFIC T WAVE ABNORMALITY ABNORMAL ECG WHEN COMPARED WITH ECG OF 27-JUN-2017 14:40, NO SIGNIFICANT CHANGE WAS FOUND Confirmed by CAROLE KOHLER MD ([id number]) on 10/24/2017 11:05:36 AM Referred By: Confirmed By:CAROLE KOHLER MD
[2017-10-24] MEDS ORDERED: IBUPROFEN 600 MG TABLET (FP) PO SCH (11:30)
--- NOTE | 2017-10-24 12:19 | DS ---
Physical Examination Vital Signs: Vital Signs Temperature 98.2 F 10/24/17 10:00 Pulse Rate 52 L 10/24/17 10:00 Respiratory Rate 18 10/24/17 10:00 Blood Pressure 127/59 10/24/17 10:00 O2 Sat by Pulse Oximetry (%) 97 10/24/17 09:00 Constitutional: Yes: Well Nourished, No Distress Cardiovascular: Yes: WNL, Regular Rate and Rhythm. No: Gallop, Murmur, Rub Respiratory: Yes: WNL, Regular, CTA Bilaterally. No: Accessory Muscle Use, Rhonchi, SOB, Tachypnea, Wheezes Gastrointestinal: Yes: WNL, Normal Bowel Sounds. No: Distention, Tenderness Renal/: Yes: WNL Edema: No Neurological: Yes: WNL, Alert, Oriented Psychiatric: Yes: WNL, Alert, Oriented Labs: CBC, BMP 10/23/17 23:15 10/24/17 07:53 Discharge Summary Reason For Visit: NSTEMI CHEST PAIN Current Active Problems Chest pain (Acute) NSTEMI (non-ST elevated myocardial infarction) (Acute) Hospital Course: is a 52 year old male who came in with complaints of chest pain. Pt has been evaluated by cardiology and is cleared for discharge as chest pain is musculoskeletal and unlikely cardiac in origin. Trial of nsaids for 5 days. Pt also with COPD, referred to outpt pulmonary for consultation and further management. Pt advised to follow up with cardiology, and pcp in 1 week. Otherwise, pt is medically cleared for d/c. Condition: Good - Instructions Diet, Activity, Other Instructions: heart healthy diet exercise as tolerated take motrin with food HgA1c 8.5 here, please follow up with PCP to further manage diabetes needs better control of ldl, tgl- continue lifestyle modifications and f/u with pcp f/u as directed Referrals: Solis Pearson MD [Staff Physician] - 1 Week (pulmonary, copd f/u. REPEAT CT SCAN ) Miriam Kilgore MD [Staff Physician] - 1 Week Dayan Larose MD [Primary Care Provider] - 1 Week Disposition: HOME - Home Medications Comprehensive Discharge Medication List: Ambulatory Orders Budesonide/Formeterol Fumarate [SYMBICORT 80/4.5mcg -] 2 puff IH BID inhaler Ibuprofen [Motrin -] 600 mg PO Q8H 5 Days #15 tablet 10/24/17 Nifedipine PO DAILY 10/24/17 Nitroglycerin Sublingual [Nitrostat -] 0.4 mg SL PRN PRN tab 10/24/17 predniSONE 2 tab PO DAILY 10/24/17
[2017-10-24 12:21] LABS: COCAINE, UR NEGATIVE ng/ml (CUTOFF=300); METHADONE, UR NEGATIVE ng/ml (CUTOFF=300); OPIATES, URI NEGATIVE ng/ml (CUTOFF=300); PHENCYCLIDINE,URINE NEGATIVE ng/ml (CUTOFF=25); URINE AMPHETAMINES NEGATIVE ng/ml (CUTOFF=500); URINE BARBITURATES NEGATIVE ng/ml (CUTOFF=200); URINE BENZODIAZEPINES NEGATIVE ng/ml (CUTOFF=200)
--- NOTE | 2017-10-26 16:10 | HP ---
Admitting History and Physical - Primary Care Physician PCP: Dayan Larose - Admission Chief Complaint: chest pain History of Present Illness: 52 year old male who came in overnight with complaints of persistent chest pain x 1 week. Reproducible with movement/breathing. Reports mild sob and reduced exercise tolerance recently. He describes burning chest pain with no radiation. Pt reports this is similar to his previous chest pain episode. Evaluated by cardiology last admission 06/19, stress echo here 06/19 + inferior ischemia on MPI, had cath at [facility] showing normal cors with no vasospasm. Otherwise, pt denies any n/v/d, abd pain, weakness, or fever/chills. 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 History of Recent Travel: No Home Medications - Allergies Allergies/Adverse Reactions: Allergies Allergy/AdvReac Type Severity Reaction Status Date / Time No Known Allergies Allergy Verified 06/27/17 14:28 - Home Medications Home Medications: Ambulatory Orders Budesonide/Formeterol Fumarate [SYMBICORT 80/4.5mcg -] 2 puff IH BID inhaler Ibuprofen [Motrin -] 600 mg PO Q8H 5 Days #15 tablet 10/24/17 Nifedipine PO DAILY 10/24/17 Nitroglycerin Sublingual [Nitrostat -] 0.4 mg SL PRN PRN tab 10/24/17 predniSONE 2 tab PO DAILY 10/24/17 Family Disease History - Family Disease History Family Disease History: Heart Disease: Sister Review of Systems Findings/Remarks: as per hpi Physical Examination Vital Signs: Vital Signs Temperature 98.2 F 10/24/17 10:00 Pulse Rate 52 L 10/24/17 10:00 Respiratory Rate 18 10/24/17 10:00 Blood Pressure 127/59 10/24/17 10:00 O2 Sat by Pulse Oximetry (%) 97 10/24/17 09:00 Labs: CBC, BMP 10/23/17 23:15 10/24/17 07:53 Problem List - Problems (1) Chest pain Assessment/Plan: mild elevation in trop ekg without acute changes acs unlikely considering reprodicible chest pain consult cardiology to r/o ACS will monitor Code(s): R07.9 - CHEST PAIN, UNSPECIFIED (2) HTN (hypertension) Assessment/Plan: controlled continue nifedipine cardiology consulted Code(s): I10 - ESSENTIAL (PRIMARY) HYPERTENSION Qualifiers: Hypertension type: essential hypertension Qualified Code(s): I10 - Essential (primary) hypertension (3) COPD (chronic obstructive pulmonary disease) Assessment/Plan: recent admission w/ copd exacerbation appears in no acute exacerbation now will monitor Code(s): J44.9 - CHRONIC OBSTRUCTIVE PULMONARY DISEASE, UNSPECIFIED (4) Hyperlipidemia Assessment/Plan: could be better controlled ldl, tgls mild elevation off meds pt advised to f/u with pcp outpt Code(s): E78.5 - HYPERLIPIDEMIA, UNSPECIFIED (5) Diabetes Assessment/Plan: being monitored outpt off meds, pt doing lifestyle modifications however hga1c >8 here pt advised to f/u with pcp for further monitoring and med management Code(s): E11.9 - TYPE 2 DIABETES MELLITUS WITHOUT COMPLICATIONS Qualifiers: Diabetes mellitus type: type 2 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
== END 2017-10-24 12:27 | disposition home or self-care (01) | DRG 198 ==
LOC: JER 21:30 → JERBED 10-24 01:47 → J4S 10-24 03:36
PROVIDERS: ADMIT Internal Medicine; ATTEND Internal Medicine
DX: R07.89 Other chest pain (principal); J44.9 Chronic obstructive pulmonary disease, unspecified; E11.9 Type 2 diabetes mellitus without complications; I10 Essential (primary) hypertension; I25.2 Old myocardial infarction; Z87.891 Personal history of nicotine dependence
CPT/HCPCS: 36415; 71046-TC-FY; 80048; 80053; 80307; 82465; 82550; 82553; 83036; 83718; 83721; 84443; 84478; 84484; 85025; 85610; 93005; 93010; 99282-25

== ENCOUNTER 2018-01-21 20:12 | Observation (INO) | payer OTHER ==
[2018-01-21 20:18] VITALS: BMI 33.2
--- NOTE | 2018-01-21 20:51 | PDOC ---
History of Present Illness - General Chief Complaint: Hematuria Stated Complaint: BLEEDING History Source: Patient Exam Limitations: No Limitations - History of Present Illness Travel History: No Initial Comments: 01/21/18 20:53 Best contact: [phone] PMD: Dr. Sung/[phone] Foam Rubber Molder: Dr. Morales/[phone] Urologist: Dr. Cespedes [phone] Pmhx: IDDM, PE, Vasospasm, Enlarged prostate, COPD, Pshx: N/A Allergies: NKDA FH: Father 70yo /Liver sclerosis MOther 70 yo /Liver sclerosis, Etoh Sister 41yo /Breast CA Brother 63 yo /DM coma (01/14/2018): Last INR: 2.0 (01/13/2018): INR:1.98 53-year-old male presents to the emergency department complaining of gross hematuria. Patient states he was admitted to the hospital 2-1/2 weeks ago for urinary retention due to a enlarged prostate. While admitted to the hospital, he was laying in bed and subsequently developed shortness of breath and tachycardia. Further study showed that he had bilateral PE and was transferred to ICU. He was discharged approximately 4-5 days later and was placed on Coumadin 7.5 mg daily. Last Tuesday his INR was 1.98 and his PMD changed his Coumadin to 10 mg by mouth daily. Last Tuesday his INR was 2.0. he was advised to take Coumadin 7.5 mg as of 6 days ago. Patient comes in today after noticing hematuria since yesterday. Patient denies fever, chills, nausea/vomiting, chest pain, shortness of breath, back pains, flank pain, abdominal discomfort. Past History - Past Medical History Allergies/Adverse Reactions: Allergies Allergy/AdvReac Type Severity Reaction Status Date / Time No Known Allergies Allergy Verified 01/21/18 20:18 Home Medications: Ambulatory Orders Tamsulosin HCl [Flomax -] 0.4 mg PO DAILY@0830 #30 cap.er.24h 01/10/18 Warfarin Na [Coumadin -] 7.5 mg PO DAILY@1800 #30 tablet 01/10/18 Insulin Glargine,Hum.rec.anlog [Basaglar Dwaynepen U-100] 0 unit SQ ASDIR Cephalexin Monohydrate [Keflex -] 500 mg PO BID 10 Days #19 capsule 01/17/18 Asthma: Yes Cardiac Disorders: Yes (Vaso spams) COPD: Yes DVT: No Diabetes: Yes Other medical history: PE - Immunization History Immunization Up to Date: Yes - Suicide/Smoking/Psychosocial Hx Smoking History: Former smoker Have you smoked in the past 12 months: No If you are a former smoker, when did you quit?: 10 YEARS AGO Information on smoking cessation initiated: No Hx Alcohol Use: No Drug/Substance Use Hx: No Substance Use Type: None Hx Substance Use Treatment: No Review of Systems - Review of Systems Able to Perform ROS?: Yes Comments:: 01/21/18 23:11 CONSTITUTIONAL: Absent: fever, chills, diaphoresis, generalized weakness, malaise, loss of appetite HEENT: Absent: rhinorrhea, nasal congestion, throat pain, throat swelling, difficulty swallowing, mouth swelling, ear pain, eye pain, visual Changes CARDIOVASCULAR: Absent: chest pain, loss of consciousness, palpitations, irregular heart rate, peripheral edema RESPIRATORY: Absent: cough, shortness of breath, dyspnea with exertion, orthopnea, wheezing, stridor, hemoptysis GASTROINTESTINAL: Absent: abdominal pain, abdominal distension, nausea, vomiting, diarrhea, constipation, melena, hematochezia GENITOURINARY: +hematuria Absent: dysuria, frequency, urgency, hesitancy, flank pain, genital pain MUSCULOSKELETAL: Absent: myalgia, arthralgia, joint swelling SKIN: Absent: rash, itching, pallor HEMATOLOGIC/IMMUNOLOGIC: Absent: easy bleeding, easy bruising, lymphadenopathy, frequent infections ENDOCRINE: Absent: unexplained weight gain, unexplained weight loss, heat intolerance, cold intolerance NEUROLOGIC: Absent: headache, focal weakness or paresthesias, dizziness, unsteady gait, seizure, mental status changes, bladder or bowel incontinence PSYCHIATRIC: Absent: anxiety, depression, suicidal or homicidal ideation, hallucinations. Is the patient limited B[place]an proficient: No *Physical Exam - Vital Signs Last Vital Signs Temp Pulse Resp BP Pulse Ox 98.4 F 74 18 132/63 100 01/21/18 20:14 01/21/18 20:14 01/21/18 20:14 01/21/18 20:14 01/21/18 20:14 - Physical Exam Comments: 01/21/18 23:12 GENERAL: Well developed, well nourished. Awake and alert. No acute distress. HEENT: Normocephalic, atraumatic. PERRLA, EOMI. No conjunctival pallor. Sclera are non- icteric. Moist mucous membranes. Oropharynx is clear. NECK: Supple. Full ROM. No JVD. Carotid pulses 2+ and symmetric, without bruits. No thyromegaly. No lymphadenopathy. CARDIOVASCULAR: Regular rate and rhythm. No murmurs, rubs, or gallops. Distal pulses are 2+ and symmetric. PULMONARY: No evidence of respiratory distress. Lungs clear to auscultation bilaterally. No wheezing, rales or rhonchi. ABDOMINAL: +hematuria/gross Soft. Non-tender. Non-distended. No rebound or guarding. No organomegaly. Normoactive bowel sounds. MUSCULOSKELETAL Normal range of motion at all joints. No bony deformities or tenderness. No CVA tenderness. EXTREMITIES: No cyanosis. No clubbing. No edema. No calf tenderness. SKIN: Warm and dry. Normal capillary refill. No rashes. No jaundice. NEUROLOGICAL: Alert, awake, appropriate. Cranial nerves 2-12 intact. No deficits to light touch and temperature in face, upper extremities and lower extremities. No motor deficits in the in face, upper extremities and lower extremities. Normoreflexic in the upper and lower extremities. Normal speech. Toes are down- going bilaterally. Gait is normal without ataxia. PSYCHIATRIC: Cooperative. Good eye contact. Appropriate mood and affect. ED Treatment Course - LABORATORY CBC & Chemistry Diagram: 01/21/18 21:14 01/21/18 21:14 Progress Note - Progress Note Progress Note: 9hrs: Called Dr. Sung/pt's PMD. Service states to call Hospitalist 2220: Called Dr. Cespedes/urology 2300 hrs: CBI q4h as per Dr. Palma [id number]: Microblogged hospitalist *DC/Admit/Observation/Transfer Diagnosis at time of Disposition: Hematuria Qualifiers: Hematuria type: unspecified type Qualified Code(s): R31.9 - Hematuria, unspecified - Discharge Dispostion Condition at time of disposition: Guarded Decision to Admit order: Yes - Referrals - Patient Instructions - Post Discharge Activity
[2018-01-21 21:34] LABS: URINE APPEARANCE CLOUDY; URINE BILIRUBIN NEGATIVE (<2.0 mg/dL); URINE COLOR AMBER; URINE GLUCOSE (UA) 1+ (NEGATIVE); URINE KETONE NEGATIVE (NEGATIVE); URINE LEUK ESTERASE NEGATIVE (NEGATIVE); URINE NITRITE NEGATIVE (NEGATIVE); URINE UROBILINOGEN NEGATIVE mg/dL (0.2-1.0)
[2018-01-21 21:34] LABS: BASO % 0.9 % (0-2.0); EOS % 1.7 % (0-4.5); HEMATOCRIT 39.1 % (35.4-49); LYMPH % 36.8 % (8-40); MCH 29.2 pg (25.7-33.7); MCHC 33.3 g/dl (32.0-35.9); MEAN CELL VOLUME 87.7 fl (80-96); MEAN PLT VOLUME 9.6 fl (7.5-11.1); MONO % 7.6 % (3.8-10.2); PLATELET COUNT 229 K/MM3 (134-434); RBC 4.46 M/mm3 (4.00-5.60); RDW 13.3 % (11.9-15.9); WHITE BLOOD COUNT 8.9 K/mm3 (4.0-10.0)
[2018-01-21 21:35] LABS: URINE PROTEIN 2+ (NEGATIVE)
[2018-01-21 21:46] LABS: INR 2.5 (0.82-1.09); PROTHROMBIN TIME (PATIENT) 28.2 SEC (9.7-13.0)
[2018-01-21 22:01] LABS: ALBUMIN 3.7 g/dl (3.4-5.0); ANION GAP 6 (8-16); BILIRUBIN,TOTAL 0.3 mg/dL (0.2-1.0); BLOOD UREA NITROGEN 12 mg/dL (7-18); CALCIUM 8.9 mg/dL (8.5-10.1); CHLORIDE 106 mmol/L (98-107); CO2 29 mmol/L (21-32); CREATININE 1.3 mg/dL (0.7-1.3); GLUCOSE,RANDOM 113 mg/dL (74-106); POTASSIUM 4.1 mmol/L (3.5-5.1); SGOT/AST 15 U/L (15-37); SGPT/ALT 49 U/L (12-78); SODIUM 141 mmol/L (136-145); TOT PROT 7.4 g/dl (6.4-8.2)
[2018-01-21 22:03] LABS: ALK PHOS 83 U/L (45-117)
[2018-01-21] MEDS ORDERED: LIDOCAINE HCL 2% JELLY 10 ML CARTRIDGE ONE (23:22)
--- NOTE | 2018-01-21 23:37 | PN ---
Teaching Attending Note Name of Resident: Jayda Fung ATTENDING PHYSICIAN STATEMENT I saw and evaluated the patient. I reviewed the resident's note and discussed the case with the resident. I agree with the resident's findings and plan as documented. SUBJECTIVE: Patient is a 53 year old man with history of recently diagnosed NIDDM, BPH, pulmonary embolism on coumadin who presents to the ER complaining of gross hematuria since yestreday. Patient states he was admitted to the hospital 2-1/2 weeks ago for urinary retention due to a enlarged prostate. While admitted to the hospital, he was laying in bed and subsequently developed shortness of breath and tachycardia. Further study showed that he had bilateral PE and was transferred to ICU. He was discharged approximately 4-5 days later and was placed on Coumadin 7.5 mg daily. Last Tuesday his INR was 1.98 and his PMD changed his Coumadin to 10 mg by mouth daily. Last Tuesday his INR was 2.0. he was advised to take Coumadin 7.5 mg as of 6 days ago. OBJECTIVE: Alert and in no ditress Vital Signs Period Temp Pulse Resp BP Sys/Wooten Pulse Ox Last 24 Hr 98.4 F 74 18 132/63 100 HEENT: No Jaundice, eye redness or discharge, PERRLA, EOMI. Normocephalic, atraumatic. External ears are normal and hearing is grossly intact. No nasal discharge. Neck: Supple, nontender. No palpable adenopathy or thyromegaly. No JVD Chest: Good effort. Clear to auscultation and percussion. Heart: Regular. No S3, rub or murmur Abdomen: Not distended, soft, nontender and no HSM. No rebound or guarding. Normoactive bowel sounds. Ext: Peripheral pulses intact. No leg edema. Skin: Warm and dry. No petechiae, rash or ecchymosis. Neuro: Alert. Oriented x3. CN 2-12 grossly intact. Sensation grossly intact in all four extremities and DTR are symmetric. Home Medications Medication Instructions Recorded Tamsulosin HCl [Flomax -] 0.4 mg PO DAILY@0830 #30 cap.er.24h 01/10/18 Warfarin Na [Coumadin -] 7.5 mg PO DAILY@1800 #30 tablet 01/10/18 Insulin Glargine,Hum.rec.anlog 0 unit SQ ASDIR 01/12/18 [Basaglar Kwikpen U-100] Cephalexin Monohydrate [Keflex -] 500 mg PO BID 10 Days #19 capsule 01/17/18 Abnormal Lab Results 01/21/18 01/21/18 01/21/18 21:14 21:14 21:25 PT with INR 28.20 H INR 2.50 H Anion Gap 6 L Random Glucose 113 H Troponin I 0.20 H Urine Protein 2+ H D Urine Glucose (UA) 1+ H Urine Blood 2+ H ASSESSMENT AND PLAN: 1. Hematuria - Has BPH, recent bouts of urinary retention as well as difficult garcia catheterization. INR is 2.5 - coumadin on hold. CBI being started on the instructions of the urologist. Monitor HCT. Was on oral antibioics for ?UTI before admission. No leukocyte esterase in the urine. No need for antibiotics at this time. Repeat UA once hematuria resolves. 2. Elevated troponin - No EKG changes of ACS and no chest pain. Will rule out ACS, trend troponin and get ECHO. 3. Remote PE - Hold coumadin and resume once INR is <2 and hematuria has stopped. 4. DM - For now, we will hold the home diabetes drugs and implement sliding scale insulin regimen. Provide comprehensive diabetes care with patient teaching and counseling about the importance of euglycemia, eye care and foot care. 5. DVT prophylaxis - Coumadin on hold; Use SCD, early ambulation. 6. Advance directives - Full code
--- NOTE | 2018-01-22 02:00 | HP ---
CHIEF COMPLAINT: Blood in urine PCP: Dr. Moses Business Information Consultant: Dr. Morales/[phone] Urologist: Dr. Cespedes [phone] HISTORY OF PRESENT ILLNESS: Pt is a 53-yo M with recent diagnosis of IDDM, BPH, bilateral PE, COPD, CHF presenting to the ED with blood in urine x 1 day. Pt noticed dark colored urine yesterday from his garcia catheter then blood in urine today. He reports no abdominal pain or distension, no urethral burning. Notes occasional R flank discomfort. Pt had this garcia inserted on Tuesday (5days ago) due to acute urinary retention secondary to BPH with a failed void trial. On Tuesday, he was placed on keflex after a coudet catheter was inserted. Pt was recently started on coumadin for bilateral PE noted in [place]'s recent admission (-). He was discharged home on Coumadin 7.5 mg daily, recently adjusted to 10mg with current INR over 2. ED contacted Dr Arteaga (covering Dr Cespedes) who recommended CBI Q4H, to evaluate in am. (01/14/2018): Last INR: 2.0 (01/13/2018): INR:1.98 ER course was notable for: (1) UA- pyuria-2122,RBCs-834, 2+Pr, 1+glu; H&H (2) CXR- no acute pathol, EKG-vent rate 52-sinus bradycardia, QTC -405, no evidence of MICHAEL/STD (3) Recent Travel: PAST MEDICAL HISTORY: IDDM, PE, Vasospasm, Enlarged prostate, COPD, PAST SURGICAL HISTORY: Social History: Smoking:Denies Alcohol:Denies Drugs: Denies Family History: Father 70yo /Liver sclerosis MOther 70 yo /Liver sclerosis, Etoh Sister 41yo /Breast CA Brother 63 yo /DM coma Allergies No Known Allergies Allergy (Verified 01/21/18 20:18) HOME MEDICATIONS: Home Medications Medication Instructions Recorded Tamsulosin HCl [Flomax -] 0.4 mg PO DAILY@0830 #30 cap.er.24h 01/10/18 Warfarin Na [Coumadin -] 7.5 mg PO DAILY@1800 #30 tablet 01/10/18 Insulin Glargine,Hum.rec.anlog 0 unit SQ ASDIR 01/12/18 [Helga Evans U-100] Cephalexin Monohydrate [Keflex -] 500 mg PO BID 10 Days #19 capsule 01/17/18 REVIEW OF SYSTEMS CONSTITUTIONAL: Absent: fever, chills, diaphoresis, generalized weakness, malaise, loss of appetite, weight change HEENT: Absent: rhinorrhea, nasal congestion, throat pain, throat swelling, difficulty swallowing, mouth swelling, ear pain, eye pain, visual changes CARDIOVASCULAR: Absent: chest pain, syncope, palpitations, irregular heart rate, lightheadedness , peripheral edema RESPIRATORY: Absent: cough, shortness of breath, dyspnea with exertion, orthopnea, wheezing, stridor, hemoptysis GASTROINTESTINAL: Absent: abdominal pain, abdominal distension, nausea, vomiting, diarrhea, constipation, melena, hematochezia GENITOURINARY: Absent: dysuria, frequency, urgency, hesitancy, hematuria, flank pain, genital pain MUSCULOSKELETAL: Absent: myalgia, arthralgia, joint swelling, back pain, neck pain SKIN: Absent: rash, itching, pallor HEMATOLOGIC/IMMUNOLOGIC: Absent: easy bleeding, easy bruising, lymphadenopathy, frequent infections ENDOCRINE: Absent: unexplained weight gain, unexplained weight loss, heat intolerance, cold intolerance NEUROLOGIC: Absent: headache, focal weakness or paresthesias, dizziness, unsteady gait, seizure, mental status changes, bladder or bowel incontinence PSYCHIATRIC: Absent: anxiety, depression, suicidal or homicidal ideation, hallucinations. PHYSICAL EXAMINATION Vital Signs - 24 hr 01/21/18 20:14 Temperature 98.4 F Pulse Rate 74 Respiratory 18 Rate Blood Pressure 132/63 O2 Sat by Pulse 100 Oximetry (%) GENERAL: Awake, alert, and fully oriented, in no acute distress. EYES: Not pale EARS, NOSE, THROAT: Moist mucous membranes. NECK: Normal range of motion, supple without lymphadenopathy, JVD, or masses. LUNGS: Breath sounds equal, clear to auscultation bilaterally. No wheezes, and no crackles. No accessory muscle use. HEART: Regular rate and rhythm, normal S1 and S2 without murmur, rub or gallop. ABDOMEN: Soft, nontender, not distended, normoactive bowel sounds, no guarding, no rebound, no masses. No hepatomegaly or splenomegaly. MUSCULOSKELETAL: Normal range of motion at all joints. No bony deformities or tenderness. No CVA tenderness. UPPER EXTREMITIES: 2+ pulses, warm, well-perfused. No cyanosis. No clubbing. No peripheral edema. LOWER EXTREMITIES: 2+ pulses, warm, well-perfused. No calf tenderness. No peripheral edema. NEUROLOGICAL: Cranial nerves II-XII intact. Normal speech. Normal gait. PSYCHIATRIC: Cooperative. Good eye contact. Appropriate mood and affect. SKIN: Warm, dry, normal turgor, no rashes or lesions noted, normal capillary refill. Laboratory Results - last 24 hr 01/21/18 01/21/18 01/21/18 21:14 21:14 21:14 WBC 8.9 RBC 4.46 Hgb 13.0 Hct 39.1 MCV 87.7 MCH 29.2 MCHC 33.3 RDW 13.3 Plt Count 229 MPV 9.6 Absolute Neuts (auto) 4.7 Neutrophils % 53.0 Lymphocytes % 36.8 D Monocytes % 7.6 Eosinophils % 1.7 Basophils % 0.9 Nucleated RBC % 0 PT with INR 28.20 H INR 2.50 H Sodium 141 Potassium 4.1 Chloride 106 Carbon Dioxide 29 Anion Gap 6 L BUN 12 Creatinine 1.3 Creat Clearance w eGFR 57.31 Random Glucose 113 H Calcium 8.9 Total Bilirubin 0.3 AST 15 D ALT 49 D Alkaline Phosphatase 83 Creatine Kinase 259 Creatine Kinase Index 0.8 CK-MB (CK-2) 2.32 Troponin I 0.20 H Total Protein 7.4 Albumin 3.7 Urine Color Urine Appearance Urine pH Ur Specific [place] Urine Protein Urine Glucose (UA) Urine Ketones Urine Blood Urine Nitrite Urine Bilirubin Urine Urobilinogen Ur Leukocyte Esterase Urine WBC (Auto) Urine RBC (Auto) 01/21/18 21:25 WBC RBC Hgb Hct MCV MCH MCHC RDW Plt Count MPV Absolute Neuts (auto) Neutrophils % Lymphocytes % Monocytes % Eosinophils % Basophils % Nucleated RBC % PT with INR INR Sodium Potassium Chloride Carbon Dioxide Anion Gap BUN Creatinine Creat Clearance w eGFR Random Glucose Calcium Total Bilirubin AST ALT Alkaline Phosphatase Creatine Kinase Creatine Kinase Index CK-MB (CK-2) Troponin I Total Protein Albumin Urine Color [place] Urine Appearance Cloudy Urine pH 6.0 Ur Specific [place] 1.015 Urine Protein 2+ H D Urine Glucose (UA) 1+ H Urine Ketones Negative Urine Blood 2+ H Urine Nitrite Negative Urine Bilirubin Negative Urine Urobilinogen Negative Ur Leukocyte Esterase Negative Urine WBC (Auto) 2123 Urine RBC (Auto) 834 Ambulatory Orders Tamsulosin HCl [Flomax -] 0.4 mg PO DAILY@0830 #30 cap.er.24h 01/10/18 Warfarin Na [Coumadin -] 7.5 mg PO DAILY@1800 #30 tablet 01/10/18 Insulin Glargine,Hum.rec.anlog [Basaglar Kwikpen U-100] 40 unit SQ AM 01/12/18 Cephalexin Monohydrate [Keflex -] 500 mg PO BID 10 Days #19 capsule 01/17/18 Insulin Glargine,Hum.rec.anlog [Basaglar Kwikpen U-100] 30 unit SQ HS 01/22/18 ASSESSMENT/PLAN: Pt is a 53-yo male with recent diagnosis of IDDM, BPH, and bilateral PE, COPD, Mild CHF presenting to the ED with blood in urine x 1 day Hematuria: New onset, following difficult garcia catheterizations, recently on keflex Pt therapeutic on coumadin for recent PE, H7H stable at this time No evidence of acute retention ED D/w with urologist Pt has a coudet garcia in, but for CBI, no evidence of clots at this time, garcia draining Repeat UA when hematuria resolves Will hold coumadin for now in view of likely procedure and to watch for resolution of hematuria Continue to trend CBC Pyuria Patient day 5 on Keflex with reinsertion of garcia Will hold off antibiotics at this time with absent LE Ucx pending Monitor Elevated troponin Has been elevated at baseline in the past Likely demand, 0.20 No EKG changes suggestive of ACS and no chest pain. Will rule out ACS, trend troponin ECHO- recent nuclear test . Recent PE Warfarin now therapeutic but with hematuria Hold coumadin till INR is <2 with resolution of hematuria . IDDM On home glargine -40am, 30pm Start BGM ACHS ISS ACHS For outpt eye care and foot care. PPx DVT prophylaxis - Coumadin on hold; SCD, early ambulation. FEN [place] oral fluids Monitor lytes, replete as needed Diabetic diet-hold for likely procedure in am Dispo Med surg-obs Advance directives - Full code Visit type - Emergency Visit Emergency Visit: Yes ED Registration Date: 01/21/18 Care time: The patient presented to the Emergency Department on the above date and was hospitalized for further evaluation of their emergent condition. - New Patient This patient is new to me today: Yes Date on this admission: 01/21/18 - Critical Care Critical Care patient: No Hospitalist Screening - Colonoscopy Questionnaire Colonoscopy Questionnaire: Colonoscopy Questionnaire - Patient: 50 - 75 years old and never had a screening colonoscopy: Yes History of colon or rectal polyps, or CA: Unknown History of IBD, Crohn's disease or UC: Unknown History of abdominal radiation therapy as a child: Unknown - Relative: 1 with colon or rectal CA, or polyps at age 60 or younger: Unknown Colon or rectal CA diagnosed at age 45 or younger: Unknown Multiple relatives with colon or rectal CA: Unknown - Outcome: Screening Result: Positive Screen
[2018-01-22 06:37] LABS: BASO % 0.8 % (0-2.0); HEMOGLOBIN 12.6 GM/dL (11.7-16.9); LYMPH % 39.2 % (8-40); MCH 29.2 pg (25.7-33.7); MCHC 33.3 g/dl (32.0-35.9); MEAN CELL VOLUME 87.7 fl (80-96); MEAN PLT VOLUME 10.4 fl (7.5-11.1); PLATELET COUNT 211 K/MM3 (134-434); RBC 4.33 M/mm3 (4.00-5.60); RDW 13.2 % (11.9-15.9); WHITE BLOOD COUNT 7.4 K/mm3 (4.0-10.0)
[2018-01-22 07:20] LABS: INR 2.67 (0.82-1.09); PROTHROMBIN TIME (PATIENT) 30.2 SEC (9.7-13.0)
[2018-01-22] MEDS: INSULIN SLIDING SCALE (NOVOLOG) 1 VIAL SQ SCH ×4 (07:22→22:05)
[2018-01-22] MEDS ORDERED: TAMSULOSIN HCL 0.4 MG CAP.ER.24H (FP) ONE (08:54)
[2018-01-22] MEDS: TAMSULOSIN HCL 0.4 MG CAP.ER.24H (FP) PO SCH (08:57)
[2018-01-22 09:24] LABS: ALBUMIN 3.5 g/dl (3.4-5.0); ALK PHOS 78 U/L (45-117); ANION GAP 9 (8-16); BILIRUBIN,TOTAL 0.2 mg/dL (0.2-1.0); BLOOD UREA NITROGEN 11 mg/dL (7-18); CHLORIDE 104 mmol/L (98-107); CO2 26 mmol/L (21-32); CREATININE 1.2 mg/dL (0.7-1.3); GLUCOSE,RANDOM 152 mg/dL (74-106); PHOSPHOROUS 4.1 mg/dL (2.5-4.9); POTASSIUM 4.1 mmol/L (3.5-5.1); SGOT/AST 16 U/L (15-37); SGPT/ALT 47 U/L (12-78); SODIUM 139 mmol/L (136-145); TOT PROT 7.2 g/dl (6.4-8.2)
--- NOTE | 2018-01-22 09:44 | PN ---
Progress Note, Physician Chief Complaint: No C/O fever, Chills or chest pain - Objective Vital Signs: Vital Signs Temperature 98.5 F 01/22/18 06:53 Pulse Rate 56 L 01/22/18 06:53 Respiratory Rate 16 01/22/18 06:53 Blood Pressure 110/60 01/22/18 06:53 O2 Sat by Pulse Oximetry (%) 97 01/22/18 06:53 Young man no c/o chest tightness , SOB or palpitation HEENT: Mm moist, no anemia, PERRLA, EOMI NECK: No JVD No Bruit, trachea central CHEST: Non tender CTA B/L CVS; S12 R mild tachycardia ABD: S/P Foleys cathterObese , non tender Bs + EXT: No edema feet, no calf tenderness CLERICAL AIDE: AOX3 non focal Labs: CBC, BMP 01/22/18 05:40 01/22/18 05:48 INR, PTT INR 2.67 (0.82-1.09) H 01/22/18 06:10 Problem List - Problems (1) Hematuria Assessment/Plan: Mild at present no blood in the collection bag no drop in H/h F/u recommendations. Code(s): R31.9 - HEMATURIA, UNSPECIFIED Qualifiers: Hematuria type: unspecified type Qualified Code(s): R31.9 - Hematuria, unspecified (2) UTI (urinary tract infection) Assessment/Plan: > 2L WBC in urine no LE or Nitrite will start ceftriaxone F/U U Culture ID consult Code(s): N39.0 - URINARY TRACT INFECTION, SITE NOT SPECIFIED (3) Obstructive uropathy Assessment/Plan: . Code(s): N13.9 - OBSTRUCTIVE AND REFLUX UROPATHY, UNSPECIFIED (4) HTN (hypertension) Assessment/Plan: Well controlled off meds Code(s): I10 - ESSENTIAL (PRIMARY) HYPERTENSION Qualifiers: Hypertension type: essential hypertension Qualified Code(s): I10 - Essential (primary) hypertension (5) Diabetes type 2, uncontrolled Assessment/Plan: on Insulin frequent episodes of Hypoglycemia, in am will decrese bed time Lantus to 26 units and am Lantus to 4 units Code(s): E11.65 - TYPE 2 DIABETES MELLITUS WITH HYPERGLYCEMIA Qualifiers: Diabetes mellitus residential insulin use: with residential use Diabetes mellitus complication status: without complication Qualified Code(s): E11.65 - Type 2 diabetes mellitus with hyperglycemia; 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
[2018-01-22] MEDS ORDERED: ACETAMINOPHEN 325 MG TABLET (FP) PO PRN (09:45)
[2018-01-22] MEDS: CEFTRIAXONE 1 GM in DEXTROSE 5%-WATER - 50 ML IVPB SCH (10:02)
[2018-01-22] MEDS ORDERED: CEFTRIAXONE 1 GM/50 ML BAG ONE (10:03)
--- NOTE | 2018-01-22 14:59 | EKG ---
Test Reason : Blood Pressure : / mmHG Vent. Rate : 052 BPM Atrial Rate : 052 BPM P-R Int : 162 ms QRS Dur : 094 ms QT Int : 436 ms P-R-T Axes : 072 -06 010 degrees QTc Int : 405 ms SINUS BRADYCARDIA OTHERWISE NORMAL ECG WHEN COMPARED WITH ECG OF 12-JAN-2018 13:50, NO SIGNIFICANT CHANGE WAS FOUND Confirmed by SANJANA KEY MD ([id number]) on 01/22/2018 2:59:10 PM Referred By: Confirmed By:SANJANA KEY MD
--- NOTE | 2018-01-22 16:23 | CON.GU ---
Consult - History of Present Illness History of Present Illness: 53 yo male with recent urinary retention and PE. Admitted for gross hematuria since yesterday. Urine now clear after irrigation. 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 History of Recent Travel: No Home Medications - Allergies Allergies/Adverse Reactions: Allergies Allergy/AdvReac Type Severity Reaction Status Date / Time No Known Allergies Allergy Verified 01/21/18 20:18 - Home Medications Home Medications: Ambulatory Orders Tamsulosin HCl [Flomax -] 0.4 mg PO DAILY@0830 #30 cap.er.24h 01/10/18 Warfarin Na [Coumadin -] 7.5 mg PO DAILY@1800 #30 tablet 01/10/18 Insulin Glargine,Hum.rec.anlog [Basaglar Kwikpen U-100] 40 unit SQ AM 01/12/18 Cephalexin Monohydrate [Keflex -] 500 mg PO BID 10 Days #19 capsule 01/17/18 Insulin Glargine,Hum.rec.anlog [Basaglar Kwikpen U-100] 30 unit SQ HS 01/22/18 Family Disease History - Family Disease History Family Disease History: Heart Disease: Sister Review of Systems - Review of Systems Genitourinary: reports: Hematuria Physical Exam- Vital Signs: Vital Signs Temperature 98.2 F 01/22/18 15:19 Pulse Rate 50 L 01/22/18 15:19 Respiratory Rate 18 01/22/18 15:19 Blood Pressure 115/58 01/22/18 15:19 O2 Sat by Pulse Oximetry (%) 98 01/22/18 15:19 Renal/: Yes: Garcia Present Labs: CBC, BMP 01/22/18 05:40 01/22/18 05:48 Problem List - Problems (1) Hematuria Assessment/Plan: urine now clear, may stop irrigation and observe, cont garcia to SD, await urine culture Code(s): R31.9 - HEMATURIA, UNSPECIFIED Qualifiers: Hematuria type: unspecified type Qualified Code(s): R31.9 - Hematuria, unspecified
[2018-01-22] MEDS ORDERED: WARFARIN NA 3 MG TABLET PO SCH (18:00)
[2018-01-22] MEDS ORDERED: WARFARIN NA 7.5 MG TABLET (FP) PO SCH ×2 (18:00)
--- NOTE | 2018-01-22 18:13 | CON.ID ---
Consult - History of Present Illness History of Present Illness: 53 year old male with PMH of recently diagnosed IDDM, BPH who developed urinary retention about 3 wks ago and required urinary catheter placement. Once catheter was removed pt continued to retain urine. Upon subsequent catheterization was started on cephalexin po (6 days ago which has been taking) . Pt had also been diagnosed with PE and was started on coumadin. He presents to the ER with hematuria. Denies any recent fever/chills/dysuria/pelvic or suprapubic discomfort. Garcia has been irrigated. No current bloody urine noted. - History Source History Provided By: Patient Limitations to Obtaining History: No Limitations - Past Medical History Pulmonary: Yes: Pulmonary Embolus Gastrointestinal: No: Ascites, Cancer, Constipation, Crohn's Disease, Diverticulitis, Diverticulosis, Esophageal Varices, Gastritis, GERD, GI Bleed, Hemorrhoids, Hiatal Hernia, Inflamatory Bowel Disease, Irritable Bowel Disease, Pancreatitis, Peptic Ulcer Disease, Ulcerative Colitis, Other Hepatobiliary: No: Cirrhosis, Cholelithiasis, Cholecystitis, Choledocholithiasis , Hepatitis A, Hepatitis B, Hepatitis C, Other Renal/: Yes: BPH, Other (urinary retention, garcia catheter) Heme/Onc: No: Anemia, B12 Deficiency, Bleeding Disorder, Cancer, Current Chemotherapy, Current Radiation Therapy, Hemochromatosis, Hypercoaguable State, Myeloproliferative Synd, Sickle Cell Disease, Sickle Cell Trait, Thrombocytopenia, Other Infectious Disease: No: AIDS, C-Diff, Herpes Zoster, HIV, MRSA, STD's, Tuberculosis, VREF, Other Psych: No: Addictions, Anxiety, Bipolar, Depression, Panic, Psychosis, Schizophrenia, Other Musculoskeletal: No: Bursitis, Chronic low back pain, Hemiparesis, Hemiplegia, Osteoarthritis, Paraplegia, Other Endocrine: Yes: Diabetes Mellitus Dermatology: No: Basal Cell, Cellulitis, Eczema, Melanoma, Psoriasis, Squamous Cell, Other - Past Surgical History Past Surgical History: Yes: None - Alcohol/Substance Use Hx Alcohol Use: No History of Substance Use: reports: None - Smoking History Smoking history: Former smoker Have you smoked in the past 12 months: No If you are a former smoker, when did you quit?: 10 YEARS AGO - Social History ADL: Independent 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 History of Recent Travel: No Home Medications - Allergies Allergies/Adverse Reactions: Allergies Allergy/AdvReac Type Severity Reaction Status Date / Time No Known Allergies Allergy Verified 01/21/18 20:18 - Home Medications Home Medications: Ambulatory Orders Tamsulosin HCl [Flomax -] 0.4 mg PO DAILY@0830 #30 cap.er.24h 01/10/18 Warfarin Na [Coumadin -] 7.5 mg PO DAILY@1800 #30 tablet 01/10/18 Insulin Glargine,Hum.rec.anlog [Basaglar Kwikpen U-100] 40 unit SQ AM 01/12/18 Cephalexin Monohydrate [Keflex -] 500 mg PO BID 10 Days #19 capsule 01/17/18 Insulin Glargine,Hum.rec.anlog [Basaglar Kwikpen U-100] 30 unit SQ HS 01/22/18 Family Disease History - Family Disease History Family Disease History: Heart Disease: Sister Review of Systems - Review of Systems Constitutional: reports: No Symptoms Eyes: reports: No Symptoms HENT: reports: No Symptoms Neck: reports: No Symptoms Cardiovascular: reports: No Symptoms Respiratory: reports: No Symptoms Gastrointestinal: reports: No Symptoms Genitourinary: reports: Other (garcia with clear yellow urine) Breasts: reports: No Symptoms Reported Musculoskeletal: reports: No Symptoms Integumentary: reports: No Symptoms Neurological: reports: No Symptoms Psychiatric: reports: No Symptoms Physical Exam Vital Signs: Vital Signs Temperature 97.6 F 01/22/18 15:30 Pulse Rate 61 01/22/18 15:30 Respiratory Rate 18 01/22/18 15:30 Blood Pressure 140/76 01/22/18 15:30 O2 Sat by Pulse Oximetry (%) 98 01/22/18 15:30 Constitutional: Yes: No Distress, Calm Neck: Yes: Supple Cardiovascular: Yes: Regular Rate and Rhythm Respiratory: Yes: CTA Bilaterally Gastrointestinal: Yes: Normal Bowel Sounds, Soft Renal/: Yes: Garcia Present (clear yellow urine) Musculoskeletal: Yes: WNL Extremities: Yes: WNL Integumentary: Yes: WNL Neurological: Yes: Alert, Oriented Labs: CBC, BMP 01/22/18 05:40 01/22/18 05:48 Laboratory Tests 01/21/18 01/21/18 01/21/18 21:14 21:14 21:14 WBC 8.9 RBC 4.46 Hgb 13.0 Hct 39.1 MCV 87.7 MCH 29.2 MCHC 33.3 RDW 13.3 Plt Count 229 MPV 9.6 Absolute Neuts (auto) 4.7 Neutrophils % 53.0 Lymphocytes % 36.8 D Monocytes % 7.6 Eosinophils % 1.7 Basophils % 0.9 Nucleated RBC % 0 PT with INR 28.20 H INR 2.50 H Sodium 141 Potassium 4.1 Chloride 106 Carbon Dioxide 29 Anion Gap 6 L BUN 12 Creatinine 1.3 Creat Clearance w eGFR 57.31 POC Glucometer Random Glucose 113 H Calcium 8.9 Phosphorus Magnesium Total Bilirubin 0.3 AST 15 D ALT 49 D Alkaline Phosphatase 83 Creatine Kinase 259 Creatine Kinase Index 0.8 CK-MB (CK-2) 2.32 Troponin I 0.20 H Total Protein 7.4 Albumin 3.7 Urine Color Urine Appearance Urine pH Ur Specific Empire Urine Protein Urine Glucose (UA) Urine Ketones Urine Blood Urine Nitrite Urine Bilirubin Urine Urobilinogen Ur Leukocyte Esterase Urine WBC (Auto) Urine RBC (Auto) Blood Type Antibody Screen 01/21/18 01/22/18 01/22/18 21:25 03:00 03:00 WBC RBC Hgb Hct MCV MCH MCHC RDW Plt Count MPV Absolute Neuts (auto) Neutrophils % Lymphocytes % Monocytes % Eosinophils % Basophils % Nucleated RBC % PT with INR INR Sodium Potassium Chloride Carbon Dioxide Anion Gap BUN Creatinine Creat Clearance w eGFR POC Glucometer Random Glucose Calcium Phosphorus Magnesium Total Bilirubin AST ALT Alkaline Phosphatase Creatine Kinase Creatine Kinase Index CK-MB (CK-2) Troponin I Cancelled Total Protein Albumin Urine Color Mary Urine Appearance Cloudy Urine pH 6.0 Ur Specific Empire 1.015 Urine Protein 2+ H D Urine Glucose (UA) 1+ H Urine Ketones Negative Urine Blood 2+ H Urine Nitrite Negative Urine Bilirubin Negative Urine Urobilinogen Negative Ur Leukocyte Esterase Negative Urine WBC (Auto) 2123 Urine RBC (Auto) 834 Blood Type Cancelled Antibody Screen Cancelled 01/22/18 01/22/18 01/22/18 04:24 05:40 05:48 WBC 7.4 RBC 4.33 Hgb 12.6 Hct 38.0 MCV 87.7 MCH 29.2 MCHC 33.3 RDW 13.2 Plt Count 211 MPV 10.4 Absolute Neuts (auto) 3.8 Neutrophils % 51.0 Lymphocytes % 39.2 Monocytes % 7.0 Eosinophils % 2.0 Basophils % 0.8 Nucleated RBC % 0 PT with INR INR Sodium 139 Potassium 4.1 Chloride 104 Carbon Dioxide 26 Anion Gap 9 BUN 11 Creatinine 1.2 Creat Clearance w eGFR > 60 POC Glucometer 75.14000 Random Glucose 152 H D Calcium 9.0 Phosphorus 4.1 Magnesium 2.0 Total Bilirubin 0.2 AST 16 ALT 47 Alkaline Phosphatase 78 Creatine Kinase Creatine Kinase Index CK-MB (CK-2) Troponin I Total Protein 7.2 Albumin 3.5 Urine Color Urine Appearance Urine pH Ur Specific Empire Urine Protein Urine Glucose (UA) Urine Ketones Urine Blood Urine Nitrite Urine Bilirubin Urine Urobilinogen Ur Leukocyte Esterase Urine WBC (Auto) Urine RBC (Auto) Blood Type Antibody Screen 01/22/18 01/22/18 01/22/18 05:48 06:10 06:20 WBC RBC Hgb Hct MCV MCH MCHC RDW Plt Count MPV Absolute Neuts (auto) Neutrophils % Lymphocytes % Monocytes % Eosinophils % Basophils % Nucleated RBC % PT with INR 30.20 H INR 2.67 H Sodium Potassium Chloride Carbon Dioxide Anion Gap BUN Creatinine Creat Clearance w eGFR POC Glucometer 144.67592 Random Glucose Calcium Phosphorus Magnesium Total Bilirubin AST ALT Alkaline Phosphatase Creatine Kinase Creatine Kinase Index CK-MB (CK-2) Troponin I 0.20 H Total Protein Albumin Urine Color Urine Appearance Urine pH Ur Specific Empire Urine Protein Urine Glucose (UA) Urine Ketones Urine Blood Urine Nitrite Urine Bilirubin Urine Urobilinogen Ur Leukocyte Esterase Urine WBC (Auto) Urine RBC (Auto) Blood Type Antibody Screen 01/22/18 01/22/18 11:30 17:10 WBC RBC Hgb Hct MCV MCH MCHC RDW Plt Count MPV Absolute Neuts (auto) Neutrophils % Lymphocytes % Monocytes % Eosinophils % Basophils % Nucleated RBC % PT with INR INR Sodium Potassium Chloride Carbon Dioxide Anion Gap BUN Creatinine Creat Clearance w eGFR POC Glucometer 118.45357 137 Random Glucose Calcium Phosphorus Magnesium Total Bilirubin AST ALT Alkaline Phosphatase Creatine Kinase Creatine Kinase Index CK-MB (CK-2) Troponin I Total Protein Albumin Urine Color Urine Appearance Urine pH Ur Specific [place] Urine Protein Urine Glucose (UA) Urine Ketones Urine Blood Urine Nitrite Urine Bilirubin Urine Urobilinogen Ur Leukocyte Esterase Urine WBC (Auto) Urine RBC (Auto) Blood Type Antibody Screen Problem List - Problems (1) Hematuria Code(s): R31.9 - HEMATURIA, UNSPECIFIED Qualifiers: Hematuria type: unspecified type Qualified Code(s): R31.9 - Hematuria, unspecified (2) UTI (urinary tract infection) Code(s): N39.0 - URINARY TRACT INFECTION, SITE NOT SPECIFIED (3) Diabetes Code(s): E11.9 - TYPE 2 DIABETES MELLITUS WITHOUT COMPLICATIONS Qualifiers: Diabetes mellitus type: type 2 Diabetes mellitus alf insulin use: without manager terminal use Diabetes mellitus complication status: without complication Qualified Code(s): E11.9 - Type 2 diabetes mellitus without complications (4) HTN (hypertension) Code(s): I10 - ESSENTIAL (PRIMARY) HYPERTENSION Qualifiers: Hypertension type: essential hypertension Qualified Code(s): I10 - Essential (primary) hypertension (5) Pulmonary embolism Code(s): I26.99 - OTHER PULMONARY EMBOLISM WITHOUT ACUTE COR PULMONALE Qualifiers: Pulmonary embolism type: saddle Chronicity: acute Acute cor pulmonale presence: with acute cor pulmonale Qualified Code(s): I26.02 - Saddle embolus of pulmonary artery with acute cor pulmonale (6) Urinary retention Code(s): R33.9 - RETENTION OF URINE, UNSPECIFIED Assessment/Plan 53 y.o. male with DM, BPH, urinary retention with garcia catheterization on cephalexin at home for past six days for UTI presents with hematuria. He had been recently diagnosed with PE and has been on coumadin UTI Urinary retention DM BPH PE -- f/u urine culture to decide on continuation of ceftriaxone -- may have received adequate antibiotic therapy with outpt keflex urology following pt currently afebrile, stable
[2018-01-22] MEDS ORDERED: INSULIN (LEVEMIR) 100 UNITS/ML UNITS SQ SCH ×2 (22:00)
[2018-01-23] MEDS: INSULIN SLIDING SCALE (NOVOLOG) 1 VIAL SQ SCH (06:38)
[2018-01-23] MEDS: INSULIN (LEVEMIR) 100 UNITS/ML UNITS SQ SCH ×2 (06:38→09:36)
[2018-01-23] MEDS ORDERED: INSULIN (LEVEMIR) 100 UNITS/ML UNITS SQ SCH (07:00)
[2018-01-23 07:26] LABS: BASO % 0.7 % (0-2.0); EOS % 2.7 % (0-4.5); HEMATOCRIT 38.3 % (35.4-49); HEMOGLOBIN 12.9 GM/dL (11.7-16.9); LYMPH % 44.3 % (8-40); MCH 29.4 pg (25.7-33.7); MCHC 33.6 g/dl (32.0-35.9); MEAN CELL VOLUME 87.6 fl (80-96); MEAN PLT VOLUME 9.9 fl (7.5-11.1); MONO % 7.2 % (3.8-10.2); NEUT % 45.1 % (42.8-82.8); PLATELET COUNT 207 K/MM3 (134-434); RBC 4.38 M/mm3 (4.00-5.60); RDW 12.9 % (11.9-15.9); WHITE BLOOD COUNT 5.7 K/mm3 (4.0-10.0)
[2018-01-23 07:38] LABS: INR 2.81 (0.82-1.09); PROTHROMBIN TIME (PATIENT) 31.7 SEC (9.7-13.0)
[2018-01-23 07:50] LABS: ANION GAP 7 (8-16); BLOOD UREA NITROGEN 9 mg/dL (7-18); CALCIUM 8.6 mg/dL (8.5-10.1); CHLORIDE 110 mmol/L (98-107); CO2 26 mmol/L (21-32); GLUCOSE,RANDOM 103 mg/dL (74-106); POTASSIUM 4.1 mmol/L (3.5-5.1); SODIUM 143 mmol/L (136-145)
[2018-01-23] MEDS: TAMSULOSIN HCL 0.4 MG CAP.ER.24H (FP) PO SCH (08:20)
[2018-01-23] MEDS ORDERED: DEXTROSE 5%-WATER - 50 ML IVPB ONE (09:27)
[2018-01-23] MEDS ORDERED: cefTRIAXone SODIUM 1 GM VIAL ONE (09:27)
[2018-01-23] MEDS: CEFTRIAXONE 1 GM in DEXTROSE 5%-WATER - 50 ML IVPB SCH (09:36)
--- NOTE | 2018-01-23 13:03 | DS ---
Physical Examination Vital Signs: Vital Signs Temperature 36.6 C 01/23/18 06:00 Pulse Rate 44 L 01/23/18 06:00 Respiratory Rate 16 01/23/18 06:00 Blood Pressure 102/56 01/23/18 06:00 O2 Sat by Pulse Oximetry (%) 98 01/22/18 15:30 Constitutional: Yes: Well Nourished, No Distress, Calm Cardiovascular: Yes: Regular Rate and Rhythm. No: Gallop, Murmur, Rub Respiratory: Yes: Regular, CTA Bilaterally. No: Rales, Rhonchi, Wheezes Gastrointestinal: Yes: Normal Bowel Sounds, Soft. No: Distention, Tenderness Renal/: Yes: Garcia Present Extremities: Yes: WNL Edema: No Labs: CBC, BMP 01/23/18 06:30 01/23/18 06:30 Discharge Summary Reason For Visit: HEMATURIA Current Active Problems Hematuria (Acute) UTI (urinary tract infection) (Acute) Hospital Course: Mr Ramos is a very pleasant 53 year old male who comes in with hematuria. He was admitted to the hospital and changed from keflex to rocephin for UTI. He has an garcia in place prior to admission for urinary retention. Urology consulted and bladder irrigated. Hematuria resolved. Currently his urine is clear. He remains therapeutic on his coumadin. Case d/w ID, will discharge on augmentin. He is safe for discharge home with close follow up. 32 minutes spent in preparation of this discharge Condition: Good - Instructions Diet, Activity, Other Instructions: resume previous diet and activity Referrals: Graham Palma MD [Staff Physician] - Dayan Larose MD [Primary Care Provider] - Disposition: HOME - Home Medications Comprehensive Discharge Medication List: Ambulatory Orders Tamsulosin HCl [Flomax -] 0.4 mg PO DAILY@0830 #30 cap.er.24h 01/10/18 Warfarin Na [Coumadin -] 7.5 mg PO DAILY@1800 #30 tablet 01/10/18 Insulin Glargine,Hum.rec.anlog [Basaglar Kwikpen U-100] 40 unit SQ AM 01/12/18 Insulin Glargine,Hum.rec.anlog [Basaglar Kwikpen U-100] 30 unit SQ HS 01/22/18 Amoxicillin/Potassium Clav [Augmentin 875-125 Tablet] 1 each PO BID #14 tablet 01/23/18 Finasteride [Proscar -] 5 mg PO DAILY #30 tablet 01/23/18
[2018-01-23 13:25] VITALS: BP 112/60; PULSE 55; TEMP 98.3
--- NOTE | 2018-01-23 13:29 | PN ---
Progress Note, Physician History of Present Illness: patient stable no complaints failed voiding trial going home with foleys known h/o of bph - Current Medication List Current Medications: Active Medications Acetaminophen (Tylenol -) 650 mg PO Q6H PRN PRN Reason: FEVER Last Admin: 01/22/18 19:42 Dose: 650 mg Ceftriaxone Sodium 1 gm/ (Dextrose) 50 mls @ 100 mls/hr IVPB DAILY [facility] Last Admin: 01/23/18 09:36 Dose: 100 mls/hr Insulin Aspart (Novolog Vial Sliding Scale -) [address] [facility]; Protocol Last Admin: 01/23/18 06:38 Dose: Not Given Insulin Detemir (Levemir Vial) 25 units SQ HS [facility] Last Admin: 01/22/18 22:02 Dose: 25 units Insulin Detemir (Levemir Vial) 35 units SQ AM [facility] Last Admin: 01/23/18 09:36 Dose: 35 units Tamsulosin HCl (Flomax -) 0.4 mg PO DAILY@0830 [facility] Last Admin: 01/23/18 08:20 Dose: 0.4 mg Warfarin Sodium (Coumadin -) 6 mg PO DAILY@1800 [facility] Last Admin: 01/22/18 17:23 Dose: 6 mg - Objective Vital Signs: Vital Signs Temperature 98.3 F 01/23/18 09:00 Pulse Rate 55 L 01/23/18 09:00 Respiratory Rate 16 01/23/18 09:00 Blood Pressure 112/60 01/23/18 09:00 O2 Sat by Pulse Oximetry (%) 98 01/22/18 15:30 Constitutional: Yes: No Distress, Calm Cardiovascular: Yes: Regular Rate and Rhythm Respiratory: Yes: Regular, CTA Bilaterally Gastrointestinal: Yes: Normal Bowel Sounds, Soft Genitourinary: Yes: Belcher Present Neurological: Yes: Alert, Oriented Psychiatric: Yes: Alert, Oriented Labs: CBC, BMP 01/23/18 06:30 01/23/18 06:30 INR, PTT INR 2.81 (0.82-1.09) H 01/23/18 06:30 Assessment/Plan Problem List - Problems (1) Hematuria Code(s): R31.9 - HEMATURIA, UNSPECIFIED Qualifiers: Hematuria type: unspecified type Qualified Code(s): R31.9 - Hematuria, unspecified (2) UTI (urinary tract infection) Code(s): N39.0 - URINARY TRACT INFECTION, SITE NOT SPECIFIED (3) Diabetes Code(s): E11.9 - TYPE 2 DIABETES MELLITUS WITHOUT COMPLICATIONS Qualifiers: Diabetes mellitus type: type 2 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: without tube molder fiberglass use Diabetes mellitus complication status: without complication Qualified Code(s): E11.9 - Type 2 diabetes mellitus without complications (4) HTN (hypertension) Code(s): I10 - ESSENTIAL (PRIMARY) HYPERTENSION Qualifiers: Hypertension type: essential hypertension Qualified Code(s): I10 - Essential (primary) hypertension (5) Pulmonary embolism Code(s): I26.99 - OTHER PULMONARY EMBOLISM WITHOUT ACUTE COR PULMONALE Qualifiers: Pulmonary embolism type: saddle Chronicity: acute Acute cor pulmonale presence: with acute cor pulmonale Qualified Code(s): I26.02 - Saddle embolus of pulmonary artery with acute cor pulmonale (6) Urinary retention Code(s): R33.9 - RETENTION OF URINE, UNSPECIFIED plan stop keflex change abx to augmentin give it for couple of days needs to follow up with urology going home with aneesh
== END 2018-01-23 14:33 | disposition home or self-care (01) ==
LOC: JER 20:12 → JERBED 23:21 → J6S 01-22 15:37
PROVIDERS: ADMIT Internal Medicine; ATTEND Internal Medicine
PROC: 3E03329 Introduction of Other Anti-infective into Peripheral Vein, Percutaneous Approach (ICD-10-PCS; principal; 2018-01-21)
PROC: 3E013VG Introduction of Insulin into Subcutaneous Tissue, Percutaneous Approach (ICD-10-PCS; 2018-01-21)
DX: R31.0 Gross hematuria (principal); R77.8 Other specified abnormalities of plasma proteins; I10 Essential (primary) hypertension; E11.65 Type 2 diabetes mellitus with hyperglycemia; I26.99 Other pulmonary embolism without acute cor pulmonale; J44.9 Chronic obstructive pulmonary disease, unspecified; I50.9 Heart failure, unspecified; N39.0 Urinary tract infection, site not specified; N13.9 Obstructive and reflux uropathy, unspecified; N40.0 Benign prostatic hyperplasia without lower urinary tract symptoms; Z79.01 Long term (current) use of anticoagulants; Z87.891 Personal history of nicotine dependence; Z79.4 Long term (current) use of insulin
CPT/HCPCS: 36415; 71045-TC-FY; 80048; 80053; 81003; 81015; 82550; 82553; 82962; 83036; 83735; 84100; 84484; 85025; 85610; 87086; 93005; 93010; 96372; 96374; 99285-25; G0378

== ENCOUNTER 2018-01-30 11:14 | Emergency (ER) | payer OTHER ==
[2018-01-30 11:24] VITALS: BP 144/81; PULSE 67; TEMP 97.8; BMI 33.2
--- NOTE | 2018-01-30 11:45 | PDOC ---
History of Present Illness - General Chief Complaint: Urinary Catheter Problem Stated Complaint: URINARY CATHETER PROBLEM Time Seen by Provider: 01/30/18 11:25 History Source: Patient Exam Limitations: No Limitations - History of Present Illness Initial Comments: CHIEF COMPLAINT: 53 y/o male here requesting something to hold his urinary catheter to his leg. HISTORY OF PRESENT ILLNESS: The patient states he had something to hold his catheter to his leg but it broke. He is requesting a new one. No other complaints. Vital signs on arrival are within normal limits. REVIEW OF SYSTEMS: GENERAL/CONSTITUTIONAL: No fever/chills. No weakness. No weight change. GENITOURINARY: No dysuria, frequency, or change in urination. +broken catheter ballesteros MUSCULOSKELETAL: No joint or muscle swelling or pain. No neck or back pain. SKIN: No rash or easy bruising. NEUROLOGIC: No headache, vertigo, loss of consciousness, or loss of sensation. PHYSICAL EXAM: GENERAL: The patient is awake, alert, and fully oriented, in no acute distress. ABDOMEN: Soft, non-distended, non-tender even to deep palpation, no hepatomegaly or splenomegaly, no masses. EXTREMITIES: Normal range of motion, no edema. NEUROLOGICAL: Normal speech, normal gait. CN II-XII grossly intact. SKIN: Warm, dry, normal turgor, no rashes or lesions noted. Past History - Past Medical History Allergies/Adverse Reactions: Allergies Allergy/AdvReac Type Severity Reaction Status Date / Time No Known Allergies Allergy Verified 01/30/18 11:20 Home Medications: Ambulatory Orders Tamsulosin HCl [Flomax -] 0.4 mg PO DAILY@0830 #30 cap.er.24h 01/10/18 Warfarin Na [Coumadin -] 7.5 mg PO DAILY@1800 #30 tablet 01/10/18 Insulin Glargine,Hum.rec.anlog [Basaglar Kwikpen U-100] 40 unit SQ AM 01/12/18 Insulin Glargine,Hum.rec.anlog [Basaglar Kwikpen U-100] 30 unit SQ HS 01/22/18 Amoxicillin/Potassium Clav [Augmentin 875-125 Tablet] 1 each PO BID #14 tablet 01/23/18 Finasteride [Proscar -] 5 mg PO DAILY #30 tablet 01/23/18 Asthma: Yes Cardiac Disorders: Yes (Vaso spams) COPD: Yes DVT: No Diabetes: Yes Disorders: Yes - Immunization History Immunization Up to Date: Yes - Suicide/Smoking/Psychosocial Hx Smoking History: Former smoker Have you smoked in the past 12 months: No If you are a former smoker, when did you quit?: 10 YEARS AGO Information on smoking cessation initiated: No Hx Alcohol Use: No Drug/Substance Use Hx: No Substance Use Type: None Hx Substance Use Treatment: No *Physical Exam - Vital Signs Last Vital Signs Temp Pulse Resp BP Pulse Ox 97.8 F 67 19 144/81 98 01/30/18 11:21 01/30/18 11:21 01/30/18 11:21 01/30/18 11:21 01/30/18 11:21 Medical Decision Making - Medical Decision Making A/P: 53 y/o male here for replacement urinary catheter ballesteros for his leg. Provided him with catheter leg ballesteros. Will discharge to home. *DC/Admit/Observation/Transfer Diagnosis at time of Disposition: Urinary catheter dysfunction Qualifiers: Encounter type: initial encounter Qualified Code(s): T83.018A - Breakdown ( mechanical) of other urinary catheter, initial encounter - Discharge Dispostion Disposition: HOME Condition at time of disposition: Good - Referrals Referrals: Dayan Larose MD [Primary Care Provider] - - Patient Instructions Printed Discharge Instructions: How to Care for Your Belcher Catheter -- Male Additional Instructions: Discharge Instructions: -Return to the ER with any worsening or concerning symptoms - Post Discharge Activity
== END 2018-01-30 11:52 | disposition home or self-care (01) ==
LOC: JERFT 11:14
DX: T83.018A Breakdown (mechanical) of other urinary catheter, initial encounter (principal); E11.9 Type 2 diabetes mellitus without complications; Z79.4 Long term (current) use of insulin; I20.1 Angina pectoris with documented spasm; Z87.891 Personal history of nicotine dependence
CPT/HCPCS: 99281-25

== ENCOUNTER 2018-02-06 13:15 | Emergency (ER) | payer OTHER ==
[2018-02-06 13:30] VITALS: BP 123/71; PULSE 54; TEMP 97.8; BMI 33.2
--- NOTE | 2018-02-06 16:10 | PDOC ---
History of Present Illness - General Chief Complaint: Edema Stated Complaint: LT CALF/ THIGH SWELLING, (PCP SENT) Time Seen by Provider: 02/06/18 16:05 History Source: Patient Exam Limitations: No Limitations - History of Present Illness Initial Comments: 02/06/18 16:08 53 yr male with c/o left calf and thigh pain sent by road worker for eval r/o DVT pt has history of bilateral PE last month. Pt denies chest pain. Pt on coumadin. Occurred: reports: last week Severity: Yes: mild Past History - Travel Traveled outside of the country in the last 30 days: No Close contact w/someone who was outside of country & ill: No - Past Medical History Allergies/Adverse Reactions: Allergies Allergy/AdvReac Type Severity Reaction Status Date / Time No Known Allergies Allergy Verified 02/06/18 13:27 Home Medications: Ambulatory Orders Tamsulosin HCl [Flomax -] 0.4 mg PO DAILY@0830 #30 cap.er.24h 01/10/18 Warfarin Na [Coumadin -] 7.5 mg PO DAILY@1800 #30 tablet 01/10/18 Insulin Glargine,Hum.rec.anlog [Basaglar Kwikpen U-100] 40 unit SQ AM 01/12/18 Insulin Glargine,Hum.rec.anlog [Basaglar Kwikpen U-100] 30 unit SQ HS 01/22/18 Amoxicillin/Potassium Clav [Augmentin 875-125 Tablet] 1 each PO BID #14 tablet 01/23/18 Finasteride [Proscar -] 5 mg PO DAILY #30 tablet 01/23/18 Asthma: Yes Cardiac Disorders: Yes (Vaso spams) COPD: Yes DVT: No Diabetes: Yes Disorders: Yes Other medical history: PE, prostate problems, indwelling garcia - Immunization History Immunization Up to Date: Yes - Suicide/Smoking/Psychosocial Hx Smoking History: Former smoker Have you smoked in the past 12 months: No If you are a former smoker, when did you quit?: 2008 Information on smoking cessation initiated: No Hx Alcohol Use: No Drug/Substance Use Hx: No Substance Use Type: None Hx Substance Use Treatment: No Review of Systems - Review of Systems Able to Perform ROS?: Yes Is the patient limited Salvadorean proficient: No Constitutional: No: Symptoms Reported HEENTM: No: Symptoms Reported Respiratory: No: Symptoms reported Cardiac (ROS): No: Symptoms Reported ABD/GI: No: Symptoms Reported Musculoskeletal: Yes: Symptoms Reported *Physical Exam - Vital Signs Last Vital Signs Temp Pulse Resp BP Pulse Ox 97.8 F 54 L 18 123/71 100 02/06/18 13:28 02/06/18 13:28 02/06/18 13:28 02/06/18 13:28 02/06/18 13:28 - Physical Exam General Appearance: Yes: Nourished, Appropriately Dressed HEENT: positive: EOMI, WILLY Neck: positive: Supple. negative: Tender Respiratory/Chest: positive: Lungs Clear, Normal Breath Sounds Cardiovascular: positive: Regular Rhythm, Regular Rate Gastrointestinal/Abdominal: positive: Normal Bowel Sounds, Soft Musculoskeletal: positive: Normal Inspection Extremity: positive: Normal Capillary Refill, Normal Inspection, Normal Range of Motion Integumentary: positive: Normal Color, Dry, Warm Neurologic: positive: Fully Oriented, Alert, Normal Mood/Affect, Normal Response , Motor Strength / ED Treatment Course - RADIOLOGY Radiology Studies Ordered: Category Date Time Status DUPLEX VASCUL US-1 LEG [US] Stat Ultrasound 02/06/18 16:05 Ordered Medical Decision Making - Medical Decision Making 02/06/18 16:09 cc: left calf pain will r/o dvt check inr 02/06/18 17:24 paged at 445 pm overhead no responce x2 office staff stated he may be in hospital i called office again told them of the results of the testing they said they will call and let him know the patient is stable for discharge follow up with him as discussed tomorrow *DC/Admit/Observation/Transfer Diagnosis at time of Disposition: Leg pain Qualifiers: Laterality: left Qualified Code(s): M79.605 - Pain in left leg - Discharge Dispostion Disposition: HOME Condition at time of disposition: Good - Referrals Referrals: Dayan Larose MD [Primary Care Provider] - - Patient Instructions Additional Instructions: follow with as discussed elevate the leg when you can apply warm compress to area of pain return if any worsening symptoms - Post Discharge Activity
[2018-02-06 16:46] LABS: INR 2.38 (0.83-1.09); PROTHROMBIN TIME (PATIENT) 26.9 SEC (9.7-13.0)
== END 2018-02-06 17:56 | disposition home or self-care (01) ==
LOC: JER 13:15 → JERFT 13:15
DX: M79.605 Pain in left leg (principal); Z79.01 Long term (current) use of anticoagulants; E11.9 Type 2 diabetes mellitus without complications; Z87.891 Personal history of nicotine dependence; Z86.711 Personal history of pulmonary embolism; J44.9 Chronic obstructive pulmonary disease, unspecified; Z96.0 Presence of urogenital implants
CPT/HCPCS: 36415; 85610; 93971-TC; 99281-25

== ENCOUNTER 2018-05-20 04:17 | Emergency (ER) | payer OTHER ==
--- NOTE | 2018-05-20 04:33 | PDOC ---
Attending Attestation - Resident Resident Name: Marie Joyce - ED Attending Attestation I have performed the following: I have examined & evaluated the patient, The case was reviewed & discussed with the resident, I agree w/resident's findings & plan - HPI HPI: 05/20/18 06:12 Pt took an advil for his tooth pain (recent root canal) and realized he was taking coumadin, came in because he was worried he would have internal bleeding. - Physicial Exam PE: 05/20/18 06:12 Agree with resident exam - Medical Decision Making 05/20/18 06:13 Home with request that he avoid NSAIDS and leafy green veggies. 05/20/18 06:13 Labs are all WNL
[2018-05-20 04:38] VITALS: BMI 34.9
[2018-05-20] MEDS ORDERED: ACETAMINOPHEN 500 MG TABLET (FP) PO ONE ×2 (05:00→05:06)
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
[2018-05-20] MEDS ORDERED: ACETAMINOPHEN 325 MG TABLET (FP) ONE (05:23)
[2018-05-20 05:36] LABS: INR 2.57 (0.83-1.09); PROTHROMBIN TIME (PATIENT) 30.6 SEC (9.7-13.0)
[2018-05-20 05:52] LABS: ALBUMIN 3.8 g/dl (3.4-5.0); ALK PHOS 77 U/L (45-117); ANION GAP 8 MMOL/L (8-16); BILIRUBIN,TOTAL 0.2 mg/dL (0.2-1); BLOOD UREA NITROGEN 13 mg/dL (7-18); CALCIUM 8.3 mg/dL (8.5-10.1); CHLORIDE 108 mmol/L (98-107); CO2 24 mmol/L (21-32); CREATININE 1.1 mg/dL (0.55-1.3); GLUCOSE,RANDOM 116 mg/dL (74-106); POTASSIUM 3.9 mmol/L (3.5-5.1); SGOT/AST 29 U/L (15-37); SGPT/ALT 62 U/L (13-61); SODIUM 140 mmol/L (136-145); TOT PROT 7.5 g/dl (6.4-8.2)
[2018-05-20 06:03] LABS: BASO % 0.6 % (0-2.0); EOS % 2.1 % (0-4.5); HEMATOCRIT 41.7 % (35.4-49); HEMOGLOBIN 13.3 GM/dL (11.7-16.9); LYMPH % 44.2 % (8-40); MCH 27.5 pg (25.7-33.7); MCHC 31.9 g/dl (32.0-35.9); MEAN CELL VOLUME 86.1 fl (80-96); MEAN PLT VOLUME 10.2 fl (7.5-11.1); MONO % 8.8 % (3.8-10.2); NEUT % 44.3 % (42.8-82.8); PLATELET COUNT 177 K/MM3 (134-434); RBC 4.85 M/mm3 (4.00-5.60); RDW 14.9 % (11.9-15.9); WHITE BLOOD COUNT 6.3 K/mm3 (4.0-10.0)
[2018-05-20 06:19] VITALS: BP 128/69; PULSE 56; TEMP 98.3
== END 2018-05-20 06:17 | disposition home or self-care (01) ==
LOC: JER 04:17
DX: R10.32 Left lower quadrant pain (principal); I10 Essential (primary) hypertension; E11.9 Type 2 diabetes mellitus without complications; Z79.4 Long term (current) use of insulin; N40.0 Benign prostatic hyperplasia without lower urinary tract symptoms; I20.1 Angina pectoris with documented spasm; Z86.711 Personal history of pulmonary embolism; Z79.01 Long term (current) use of anticoagulants
CPT/HCPCS: 36415; 80053; 85025; 85610; 99282-25

== ENCOUNTER 2018-09-14 16:04 | Emergency (ER) | payer OTHER ==
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
[2018-09-14 16:26] VITALS: BP 107/69; PULSE 66; TEMP 97.8; BMI 34.5
== END 2018-09-14 19:34 | disposition left against medical advice (07) ==
LOC: JER 16:04
DX: R07.89 Other chest pain (principal); V49.9XXA Car occupant (driver) (passenger) injured in unspecified traffic accident, initial encounter; Y93.89 Activity, other specified; Y92.410 Unspecified street and highway as the place of occurrence of the external cause; Z86.711 Personal history of pulmonary embolism; Z79.01 Long term (current) use of anticoagulants
CPT/HCPCS: 99281-25

== ENCOUNTER 2018-09-15 21:45 | Emergency (ER) | payer OTHER ==
[2018-09-15 21:53] VITALS: BP 128/63; PULSE 58; TEMP 97.5; BMI 34.5
[2018-09-16] MEDS ORDERED: ALBUTEROL SO4 2.5/IPRATROPIUM 0.5 INH SOL 3 ML VIAL.NEB. NEB ONE ×2 (00:22→00:32)
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
[2018-09-16] MEDS ORDERED: ACETAMINOPHEN 1000 MG/100 ML VIAL (NON FORMULARY) IVPB ONE (00:26)
[2018-09-16] MEDS ORDERED: ACETAMINOPHEN INJECTION 100 ML IVPB ONE (00:32)
[2018-09-16 00:51] LABS: BASO % 0.8 % (0-2.0); EOS % 3.8 % (0-4.5); HEMATOCRIT 40.6 % (35.4-49); HEMOGLOBIN 13.8 GM/dL (11.7-16.9); LYMPH % 41.7 % (8-40); MCH 29.9 pg (25.7-33.7); MCHC 34.1 g/dl (32.0-35.9); MEAN CELL VOLUME 87.7 fl (80-96); MEAN PLT VOLUME 10.7 fl (7.5-11.1); MONO % 8.6 % (3.8-10.2); NEUT % 45.1 % (42.8-82.8); PLATELET COUNT 166 K/MM3 (134-434); RBC 4.63 M/mm3 (4.00-5.60)
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
[2018-09-16 01:08] LABS: INR 1.1 (0.83-1.09)
[2018-09-16 01:11] LABS: ACTIVATED PTT 30.8 SECONDS (25.2-36.5)
[2018-09-16 01:23] LABS: ALBUMIN 3.6 g/dl (3.4-5.0); ALK PHOS 75 U/L (45-117); ANION GAP 5 MMOL/L (8-16); BILIRUBIN,TOTAL 0.3 mg/dL (0.2-1); BLOOD UREA NITROGEN 16 mg/dL (7-18); CALCIUM 8.7 mg/dL (8.5-10.1); CHLORIDE 106 mmol/L (98-107); CO2 27 mmol/L (21-32); CREATININE 1.2 mg/dL (0.55-1.3); GLUCOSE,RANDOM 128 mg/dL (74-106); POTASSIUM 4.1 mmol/L (3.5-5.1); SGOT/AST 20 U/L (15-37); SGPT/ALT 45 U/L (13-61); SODIUM 138 mmol/L (136-145); TOT PROT 7.4 g/dl (6.4-8.2)
[2018-09-16] MEDS ORDERED: SODIUM CHLORIDE 1,000 ML IV STA (01:32)
== END 2018-09-16 03:47 | disposition home or self-care (01) ==
LOC: JER 21:45
PROC: 3E0F7GC Introduction of Other Therapeutic Substance into Respiratory Tract, Via Natural or Artificial Opening (ICD-10-PCS; principal; 2018-09-15)
PROC: 3E0337Z Introduction of Electrolytic and Water Balance Substance into Peripheral Vein, Percutaneous Approach (ICD-10-PCS; 2018-09-15)
PROC: 3E033NZ Introduction of Analgesics, Hypnotics, Sedatives into Peripheral Vein, Percutaneous Approach (ICD-10-PCS; 2018-09-15)
DX: R06.02 Shortness of breath (principal); V43.62XA Car passenger injured in collision with other type car in traffic accident, initial encounter; Y92.488 Other paved roadways as the place of occurrence of the external cause; Y93.89 Activity, other specified; Y99.8 Other external cause status; J44.9 Chronic obstructive pulmonary disease, unspecified; E11.9 Type 2 diabetes mellitus without complications; N40.0 Benign prostatic hyperplasia without lower urinary tract symptoms; Z86.711 Personal history of pulmonary embolism; Z79.01 Long term (current) use of anticoagulants
CPT/HCPCS: 36415; 71046-TC-FY; 71275-TC; 80053; 84484; 85025; 85610; 85730; 94640; 96361; 96374; 99284-25; J0131; J7030

== ENCOUNTER 2018-11-01 21:04 | Observation (INO) | payer OTHER ==
[2018-11-01 21:22] VITALS: BMI 35.2
[2018-11-01 21:58] LABS: BASO % 0.6 % (0-2.0); EOS % 2.3 % (0-4.5); HEMATOCRIT 40.6 % (35.4-49); HEMOGLOBIN 13.4 GM/dL (11.7-16.9); LYMPH % 37.2 % (8-40); MCH 29.1 pg (25.7-33.7); MEAN CELL VOLUME 88.2 fl (80-96); MEAN PLT VOLUME 10.7 fl (7.5-11.1); MONO % 8.8 % (3.8-10.2); NEUT % 51.1 % (42.8-82.8); PLATELET COUNT 177 K/MM3 (134-434); RBC 4.61 M/mm3 (4.00-5.60); RDW 13.9 % (11.9-15.9); WHITE BLOOD COUNT 9.4 K/mm3 (4.0-10.0)
[2018-11-01 22:15] LABS: INR 1.03 (0.83-1.09); PROTHROMBIN TIME (PATIENT) 12.1 SEC (9.7-13.0)
[2018-11-01 22:29] LABS: ALBUMIN 3.8 g/dl (3.4-5.0); ALK PHOS 82 U/L (45-117); ANION GAP 4 MMOL/L (8-16); BILIRUBIN,TOTAL 0.2 mg/dL (0.2-1); BLOOD UREA NITROGEN 10 mg/dL (7-18); CALCIUM 8.9 mg/dL (8.5-10.1); CHLORIDE 105 mmol/L (98-107); CO2 29 mmol/L (21-32); CREATININE 1.2 mg/dL (0.55-1.3); GLUCOSE,RANDOM 94 mg/dL (74-106); POTASSIUM 4.2 mmol/L (3.5-5.1); SGOT/AST 28 U/L (15-37); SGPT/ALT 85 U/L (13-61); SODIUM 138 mmol/L (136-145); TOT PROT 7.9 g/dl (6.4-8.2)
--- NOTE | 2018-11-01 22:41 | PDOC ---
History of Present Illness - General Chief Complaint: Back Pain Stated Complaint: BACK PAIN Time Seen by Provider: 11/01/18 21:10 History Source: Patient Exam Limitations: No Limitations - History of Present Illness Initial Comments: 11/01/18 21:48 53M with a PMH of Saddle PE (on Eliquis x1 mo, was on Coumadin), COPD, DM, BPH who presents to the ER with complaints of leg and back pain. The patient states that for the past few days, he's noticed L calf and thigh pain with "some" pain in his R leg. He also describes thoracic back pain which worsens when he moves and when he takes a deep breath. He also admits to "about" 1 hour of chest pain , L anterior upper chest which started tonight without radiation and exacerbating or alleviating factors. Past History - Past Medical History Allergies/Adverse Reactions: Allergies Allergy/AdvReac Type Severity Reaction Status Date / Time No Known Allergies Allergy Verified 11/01/18 21:47 Home Medications: Ambulatory Orders Tamsulosin HCl [Flomax -] 0.4 mg PO DAILY@0830 #30 cap.er.24h 01/10/18 Insulin Glargine,Hum.rec.anlog [Basaglar Kwikpen U-100] 25 unit SQ HS 01/22/18 Finasteride [Proscar -] 5 mg PO DAILY #30 tablet 01/23/18 Apixaban [Eliquis] 2.5 mg PO BID 11/01/18 Rosuvastatin Calcium [Crestor] 10 mg PO DAILY 11/01/18 Asthma: Yes Cardiac Disorders: Yes (Vaso spams) COPD: No DVT: Yes (PE,) Diabetes: Yes (NIDDM) Disorders: Yes - Immunization History Immunization Up to Date: Yes - Suicide/Smoking/Psychosocial Hx Smoking History: Former smoker Have you smoked in the past 12 months: No If you are a former smoker, when did you quit?: 15 yrs ago Information on smoking cessation initiated: No Hx Alcohol Use: No Drug/Substance Use Hx: No Substance Use Type: None Hx Substance Use Treatment: No Review of Systems - Review of Systems Able to Perform ROS?: Yes Comments:: 11/01/18 22:52 GENERAL/CONSTITUTIONAL: No fever or chills. No weakness. HEAD, EYES, EARS, NOSE AND THROAT: No change in vision. No ear pain or discharge. No sore throat. CARDIOVASCULAR: + for chest pain. No palpitations or lightheadedness. RESPIRATORY: No cough, wheezing, shortness of breath, or hemoptysis. GASTROINTESTINAL: No nausea, vomiting, diarrhea, constipation, or abdominal pain. GENITOURINARY: No dysuria, frequency, hematuria, or change in urination. MUSCULOSKELETAL: + for leg pain and back pain. SKIN: No rash or lesions. NEUROLOGIC: No headache, numbness, tingling, focal weakness, loss of consciousness, or change in strength/sensation. Is the patient limited Serbian proficient: No *Physical Exam - Vital Signs Last Vital Signs Temp Pulse Resp BP Pulse Ox 97.6 F 58 L 20 115/63 97 11/01/18 21:05 11/01/18 21:05 11/01/18 21:05 11/01/18 21:05 11/01/18 21:05 - Physical Exam Comments: 11/01/18 22:52 GENERAL: Well developed, well nourished. Awake and alert. No acute distress. HEENT: Normocephalic, atraumatic. Hearing grossly normal. Moist mucous membranes. PERRLA, EOMI. No conjunctival pallor. Sclera are non-icteric. NECK: Supple. Full ROM. No JVD. CARDIOVASCULAR: Regular rate and rhythm. No murmurs, rubs, or gallops. PULMONARY: No evidence of respiratory distress. Lungs clear to auscultation bilaterally. No wheezing, rales or rhonchi. ABDOMINAL: Soft. Non-tender. Non-distended. No rebound or guarding. GENITOURINARY: No CVA tenderness bilaterally. MUSCULOSKELETAL: TTP over L paraspinal T-spine. TTP over medial distal thigh. TTP over L anterior upper chest. Normal range of motion at all joints. EXTREMITIES: No cyanosis. No clubbing. No edema. No calf tenderness or swelling. SKIN: Warm and dry. Normal capillary refill. No rashes. No jaundice. NEUROLOGICAL: Alert, awake, appropriate. Cranial nerves 2-12 grossly intact. Normal speech. Gait is normal without ataxia. PSYCHIATRIC: Cooperative. Good eye contact. Appropriate mood and affect. ED Treatment Course - LABORATORY CBC & Chemistry Diagram: 11/01/18 21:40 11/01/18 21:40 - RADIOLOGY Radiology Studies Ordered: Category Date Time Status DUPLEX VASCUL US-2LEGS [US] Stat Ultrasound 11/01/18 21:20 Ordered Medical Decision Making - Medical Decision Making 11/01/18 22:54 53M with MMP including PE on eliquis who presents with calf and thigh pain with CP concerning for PE. Will check duplex and CTA. Will monitor patient closely. 11/02/18 01:13 CTA and duplex negative for DVT/PE. However, CKMB elevated. Will repeat CKMB and troponin and admit for elevated CK and CKMB. 11/02/18 04:[address] Tinajero for admission. *DC/Admit/Observation/Transfer Diagnosis at time of Disposition: Increased CPK level Chest pain Qualifiers: Chest pain type: pleurodynia Qualified Code(s): R07.81 - Pleurodynia - Discharge Dispostion Condition at time of disposition: Guarded Decision to Admit order: Yes - Referrals Referrals: Dayan Larose MD [Primary Care Provider] - - Patient Instructions - Post Discharge Activity
[2018-11-01] MEDS ORDERED: SODIUM CHLORIDE 0.9% 1000 ML INFUS.BAG IV ONE (23:27)
[2018-11-01] MEDS ORDERED: DEXTROSE 50%-WATER - 25 GM/50 ML VIAL IVPUSH PRN (23:56)
--- NOTE | 2018-11-02 01:18 | PDOC ---
Documentation entered by Kaden Arora SCRIBE, acting as scribe for Shabana Haider DO. Shabana Haider DO: This documentation has been prepared by the Ulysses platt Daniel, SCRIBE, under my direction and personally reviewed by me in its entirety. I confirm that the documentation accurately reflects all work , treatment, procedures, and medical decision making performed by me. Attending Attestation - Resident Resident Name: Tuan Arzate - ED Attending Attestation I have performed the following: I have examined & evaluated the patient, The case was reviewed & discussed with the resident, I agree w/resident's findings & plan - HPI HPI: 11/01/18 21:28 The patient is a 53 year old male with a past medical history of previous Saddle PE (on eliquis), COPD, diabetes, and BPD here today for evaluation of left calf and thigh pain. The patient reports that his left calf and thigh pain began a few days ago and also notes mild pain on his right calf as well. He notes today that he felt left sided thoracic back pain that was worse with movement and left sided chest pain with associated shortness of breath. Patient denies headache, lightheadedness. Denies fever, chills. Denies nausea, vomiting, diarrhea, abdominal pain. Denies lower extremity edema. Allergies: NKA - Physicial Exam PE: 11/01/18 21:28 Agree with resident's physical exam. - Medical Decision Making 11/02/18 01:17 53-year-old male with history of saddle pulmonary embolus and cardiac vasospasm complaining of chest pain as well as leg pain Lower extremity ultrasounds are negative for acute DVT CTA of the chest is negative for pulmonary embolism Patient does have an elevated CK-MB as well as a mildly elevated troponin He will be held for observation and serial enzymes and cardiac monitoring
--- NOTE | 2018-11-02 04:59 | PN ---
Teaching Attending Note Name of Resident: Thad Tinajero ATTENDING PHYSICIAN STATEMENT I saw and evaluated the patient. I reviewed the resident's note and discussed the case with the resident. I agree with the resident's findings and plan as documented. SUBJECTIVE: Seen and examined; please refer to resident note for further historical information. Briefly, this is a 53 y/o male with a PMH of DM, coronary artery vasospasms, CAD, COPD, rhabdomyolysis x 3, saddle PE (on Eliquis, was on coumadin), BPH with urinary retention hx, HLD, previous anabolic steroid/ testosterone use. He comes in today for leg pain (L>R) and somewhat pleuritic chest pain and mid-thoracic back pain. 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 He disclosed to his PCP that he had been working out, though, so the decision was to have him not work out for several days then repeat the value. He did so; repeat value was unknown but then he went to work out and had aforementioned sx. Last cath 06/2017 at [place] which reportedly did not show significant CAD or vasospasm. 10 sys ROS done and negative aside from HPI PMH, PSH, FH, SH reviewed Home Medications Medication Instructions Recorded Tamsulosin HCl [Flomax -] 0.4 mg PO DAILY@0830 #30 cap.er.24h 01/10/18 Insulin Glargine,Hum.rec.anlog 25 unit SQ HS 01/22/18 [Basaglar Kwikpen U-100] Finasteride [Proscar -] 5 mg PO DAILY #30 tablet 01/23/18 Apixaban [Eliquis] 2.5 mg PO BID 11/01/18 Rosuvastatin Calcium [Crestor] 10 mg PO DAILY 11/01/18 OBJECTIVE: VS, labs, imaging reviewed NAD, AAO, resting comfortably in bed NC AT EOMI PERRLA RRR s1/2 no mgr Lungs CTAB, w/ sym exp NT ND +BS CN2-12 wnl, no fnd Normal mood, appropriate behavior EKG reviewed CTA negative for PE or dissection Venous duplex negative for DVT Echo pending Initial troponin and repeat same at 0.17; CK and CKMB elevated Previous CV records reviewed; Echo 06/2017: nl wall thickness. nl lv/rv size/ fn. 1+ lae. mild-mod mr. Echo 09/2015: Nl LV/RV, mild-mod MR/TR, RVSP 30-40 MPI 06/19: 10.1 METS. no ischemic ekg changes. moderate sized mild intensity inferior wall ischemia. mild global HK. Mildly depressed EF 46%. MPI 09/2015: 10.[address] METS. Non-specific ST abnormalities. Small inf fixed defct with nl wall motion (diaphragmatic attenuation) EF 55% [facility] 06/19 ([place]): normal coronaries. no coronary vasospasm seen. [facility] 2009 [facility]: Vgram EF 60%. patent LM, LAD, LCx. 40% oRCA, relieved by IC NTG but also thought to have partial CAD component ASSESSMENT AND PLAN: Patient presents with bodyaches/leg aches/somewhat atypical CP, elevated CK, elevated troponin 1) Body pains with elevated CK, CKMB, Troponin -Ddx includes statin induced vs. due to working out. Not at rhabdo levels and CK has trended down when CKMB and trop were similar on repeat. Will continue to trend. NS @100 in the meanwhile. PRN symptomatic management. Holding statin and consulting cardiology. 2) Chest Pain -Monitor on telemetry; trend troponin. No significant CAD reportedly 2017 cath ; would be helpful to have full report. His CV will be following -Ddx discussed above; Also consider history of coronary vasospasm; though not seen on the cath 2017 he used to be on nifedipine for this but it was stopped fue to interactions with his BPH meds. Given his BP >160 systolic would be reasonable to start him on amlodipine for his pressure which should also help with this. 3) Hx PE -Negative CT, US done in ER. Continue on eliquis. 4) BPH hx -Continue home meds; verify with pharmacy in AM 5) DM -Continue home basal; add on SSI 6) HTN -Starting amlodipine as discussed under #2 7) HLD -Holding statin for now Full Code
[2018-11-02] MEDS ORDERED: SODIUM CHLORIDE 1,000 ML IV SCH (06:15)
[2018-11-02] MEDS ORDERED: amLODIPine BESYLATE 5 MG TABLET (FP) PO SCH (06:15)
--- NOTE | 2018-11-02 06:24 | HP ---
CHIEF COMPLAINT: Diffuse muscle pain PCP: Dr Larose HISTORY OF PRESENT ILLNESS: Pt is a 53 y/o M with a significant past medical history of Pulmonary embolism ( January 2018, on Eliquis), BPH, IDDM, coronary artery vasospasms, COPD, and history of rhabdomyolysis x 3 who presented to [facility] [place] due to diffuse muscle pain. Pt endorses that he has been experiencing diffuse muscle pain for approximately 2 weeks. Pt was recently started on Crestor by his PMD and believes his pain commenced shortly after this. Pt underwent routine blood-work at his press clipper's office that week and was promptly informed to stop taking his statin as his CK was noted to be elevated. Pain is most severe in mid-back. Described as a deep pain that is a 10/10 in severity at it's maximum. Pt endorses excising nearly everyday however stopped recently exercising as he was informed that he would need to have his blood-tested again (yesterday) to assess for any level changes in his CK. Also endorses mild chest pain upon entry to ED though upon physical exam, denies any chest pain. PMH As per above SurgHx- No surgical history Social- Former Smoker. Quit 10 years ago. 1PPD. Denies alcohol or Illicit drug use. FH- Father DM, HTN. Mother Liver Cirrhosis NKDA ER course was notable for: (1) Troponin 0.17x3. (2) CK 676. CK-MB 3.9 (3) Chest CTA- Negative for P.E. d/l Venous Dopplers negative Family History: Allergies No Known Allergies Allergy (Verified 11/01/18 21:47) HOME MEDICATIONS: Home Medications Medication Instructions Recorded Tamsulosin HCl [Flomax -] 0.4 mg PO DAILY@0830 #30 cap.er.24h 01/10/18 Insulin Glargine,Hum.rec.anlog 25 unit SQ HS 01/22/18 [Basaglar Kwikpen U-100] Finasteride [Proscar -] 5 mg PO DAILY #30 tablet 01/23/18 Apixaban [Eliquis] 2.5 mg PO BID 11/01/18 Rosuvastatin Calcium [Crestor] 10 mg PO DAILY 11/01/18 REVIEW OF SYSTEMS CONSTITUTIONAL: Absent: fever, chills, diaphoresis, generalized weakness, malaise, loss of appetite, weight change HEENT: Absent: rhinorrhea, nasal congestion, throat pain, throat swelling, difficulty swallowing, mouth swelling, ear pain, eye pain, visual changes CARDIOVASCULAR: PRESENT chest pain RESPIRATORY: Absent: cough, shortness of breath, dyspnea with exertion, orthopnea, wheezing, stridor, hemoptysis GASTROINTESTINAL: Absent: abdominal pain, abdominal distension, nausea, vomiting, diarrhea, constipation, melena, hematochezia GENITOURINARY: Absent: dysuria, frequency, urgency, hesitancy, hematuria, flank pain, genital pain MUSCULOSKELETAL: PRESENT myalgia, back pain SKIN: Absent: rash, itching, pallor HEMATOLOGIC/IMMUNOLOGIC: Absent: easy bleeding, easy bruising, lymphadenopathy, frequent infections ENDOCRINE: Absent: unexplained weight gain, unexplained weight loss, heat intolerance, cold intolerance NEUROLOGIC: Absent: headache, focal weakness or paresthesias, dizziness, unsteady gait, seizure, mental status changes, bladder or bowel incontinence PSYCHIATRIC: Absent: anxiety, depression, suicidal or homicidal ideation, hallucinations. PHYSICAL EXAMINATION Vital Signs - 24 hr 11/01/18 11/02/18 11/02/18 21:05 01:44 06:15 Temperature 97.6 F 97.9 F 98.2 F Pulse Rate 58 L Pulse Rate [ 83 56 L Right Radial] Respiratory 20 19 16 Rate Blood Pressure 115/63 Blood Pressure 164/92 111/53 L [Left Arm] O2 Sat by Pulse 97 91 L 95 Oximetry (%) GENERAL: NAD HEAD: Normal with no signs of trauma. EYES: EOMI Sclera Clear . EARS, NOSE, THROAT: MMM NECK: Supple LUNGS: CTAB HEART: RRR NL S1S2 BACK: Left paraspinal tenderness ABDOMEN: Soft NDNT MUSCULOSKELETAL: FROM LOWER EXTREMITIES: Tibial Tuberosity protuberance. Tender to squeeze b/l calfs. No cords appreciated. NEUROLOGICAL: Cranial nerves II-XII intact. Normal speech. PSYCHIATRIC: Cooperative. Good eye contact. Appropriate mood and affect. SKIN: Warm, dry, normal turgor, no rashes or lesions noted, normal capillary refill. Laboratory Results - last 24 hr 11/01/18 11/01/18 11/01/18 21:40 21:40 21:40 WBC 9.4 RBC 4.61 Hgb 13.4 Hct 40.6 MCV 88.2 MCH 29.1 MCHC 33.0 RDW 13.9 Plt Count 177 MPV 10.7 Absolute Neuts (auto) 4.8 Neutrophils % 51.1 Lymphocytes % 37.2 Monocytes % 8.8 Eosinophils % 2.3 Basophils % 0.6 Nucleated RBC % 0 PT with INR 12.10 INR 1.03 Sodium 138 Potassium 4.2 Chloride 105 Carbon Dioxide 29 Anion Gap 4 L BUN 10 Creatinine 1.2 Creat Clearance w eGFR 62.86 POC Glucometer Random Glucose 94 Calcium 8.9 Total Bilirubin 0.2 AST 28 ALT 85 H Alkaline Phosphatase 82 Creatine Kinase 675 H Creatine Kinase Index 0.5 CK-MB (CK-2) 3.9 H Troponin I 0.17 H Total Protein 7.9 Albumin 3.8 11/01/18 11/01/18 11/02/18 21:40 23:58 01:20 WBC RBC Hgb Hct MCV MCH MCHC RDW Plt Count MPV Absolute Neuts (auto) Neutrophils % Lymphocytes % Monocytes % Eosinophils % Basophils % Nucleated RBC % PT with INR INR Sodium Potassium Chloride Carbon Dioxide Anion Gap BUN Creatinine Creat Clearance w eGFR POC Glucometer 108 Random Glucose Calcium Total Bilirubin AST ALT Alkaline Phosphatase Creatine Kinase 676 H 629 H Creatine Kinase Index 0.5 0.6 CK-MB (CK-2) 3.9 H 3.9 H Troponin I 0.17 H Total Protein Albumin ASSESSMENT/PLAN: Pt is a 53 y/o M with a significant past medical history of Pulmonary embolism (January 2018, on Eliquis), BPH, IDDM, coronary artery vasospasms, COPD, and history of rhabdomyolysis x 3 who presented to [facility] [place] due to diffuse muscle pain. #Myalgia w/ Elevated CK, CK-MB and Troponin - CK 676. Troponin 0.17. CK-MB 3.26 - Repeat Troponin pending. Trend CK. -Withold Statin -NS@100cc/hr - Cardiology consult # Chest Pain -Troponin .17 x 2. 3rd Tropn pending. Will admit to tele. Cadiology consult - Last cath 06/2017 at [facility]: no significant CAD or vasospasm. -H/o coronary artery vasospasm. Will place on Amlodipine 5 daily as BP also elevated in ED to 160's systolic. Pt reportedly was on Nifedipine for his vasospasms in past however was D/C'ed due to hypotension w/ concomitant tamsulosin use. # Hx of Pulmonary Embolism -Negative CTA Chest, B/L lower extremity US done in ER--> Negative. Continue on eliquis 2.5 BID. # BPH hx -Continue Tamsulosin and Finasteride. # DM - SSI. Consider restarting home Lantus 25 U HS if BGM elevated. #HTN -Starting amlodipine 5 Daily # HLD -Holding statin for now #FEN -NS@100cc/hr -Monitor CK -Low Sodium/Cholesterol Diet #DVT ppx: -Eliquis 2.5 BID #Dispo: -Tele Visit type - Emergency Visit Emergency Visit: Yes ED Registration Date: 11/02/18 Care time: The patient presented to the Emergency Department on the above date and was hospitalized for further evaluation of their emergent condition. - New Patient This patient is new to me today: Yes Date on this admission: 11/02/18 - Critical Care Critical Care patient: No
[2018-11-02] MEDS ORDERED: amLODIPine BESYLATE 5 MG TABLET (FP) ONE (07:05)
[2018-11-02] MEDS ORDERED: TAMSULOSIN HCL 0.4 MG CAP ONE (08:15)
[2018-11-02] MEDS ORDERED: APIXABAN 5 MG TABLET PO ONE (08:15)
[2018-11-02] MEDS ORDERED: TAMSULOSIN HCL 0.4 MG CAP PO SCH (08:30)
[2018-11-02 09:23] LABS: INR 1.05 (0.83-1.09); PROTHROMBIN TIME (PATIENT) 12.4 SEC (9.7-13.0)
[2018-11-02 09:26] LABS: ACTIVATED PTT 30.1 SECONDS (25.2-36.5)
[2018-11-02 09:30] LABS: ALBUMIN 3.3 g/dl (3.4-5.0); ALK PHOS 72 U/L (45-117); ANION GAP 7 MMOL/L (8-16); BILIRUBIN,TOTAL 0.3 mg/dL (0.2-1); BLOOD UREA NITROGEN 12 mg/dL (7-18); CHLORIDE 107 mmol/L (98-107); CO2 26 mmol/L (21-32); CREATININE 1.2 mg/dL (0.55-1.3); GLUCOSE,RANDOM 164 mg/dL (74-106); SGOT/AST 26 U/L (15-37); SGPT/ALT 69 U/L (13-61); SODIUM 140 mmol/L (136-145); TOT PROT 6.5 g/dl (6.4-8.2)
[2018-11-02 09:33] LABS: MAGNESIUM 1.8 mg/dL (1.8-2.4); PHOSPHOROUS 3.5 mg/dL (2.5-4.9)
--- NOTE | 2018-11-02 09:51 | PN ---
Progress Note, Physician Chief Complaint: Mr Ramos complains of chest, back, and thigh pain. It is unchanged. Denies cp, sob, n/v. - Current Medication List Current Medications: Active Medications Amlodipine Besylate (Norvasc -) 5 mg PO DAILY [facility] Last Admin: 11/02/18 07:10 Dose: Not Given Apixaban (Eliquis -) 2.5 mg PO BID [facility] Last Admin: 11/02/18 09:07 Dose: 2.5 mg Dextrose (D50w (Vial) -) 25 gm IVPUSH PRN PRN PRN Reason: HYPOGLYCEMIA Finasteride (Proscar -) 5 mg PO DAILY [facility] Last Admin: 11/02/18 09:07 Dose: 5 mg Sodium Chloride (Normal Saline -) 1,000 mls @ 100 mls/hr IV ASDIR [facility] Last Admin: 11/02/18 07:10 Dose: 100 mls/hr Tamsulosin HCl (Flomax -) 0.4 mg PO DAILY@0830 [facility] Last Admin: 11/02/18 08:20 Dose: 0.4 mg - Objective Vital Signs: Vital Signs Temperature 36.7 C 11/02/18 08:13 Pulse Rate 50 L 11/02/18 08:13 Respiratory Rate 18 11/02/18 08:13 Blood Pressure 104/49 L 11/02/18 08:13 O2 Sat by Pulse Oximetry (%) 96 11/02/18 08:13 Constitutional: Yes: Well Nourished, No Distress, Calm Cardiovascular: Yes: Regular Rate and Rhythm. No: Gallop, Murmur, Rub Respiratory: Yes: Regular, CTA Bilaterally. No: Rales, Rhonchi, Wheezes Gastrointestinal: Yes: Normal Bowel Sounds, Soft. No: Distention, Tenderness Extremities: Yes: WNL Edema: No Labs: CBC, BMP 11/01/18 21:40 11/02/18 08:40 INR, PTT INR 1.05 (0.83-1.09) 11/02/18 08:40 Problem List - Problems (1) Chest pain Code(s): R07.9 - CHEST PAIN, UNSPECIFIED Qualifiers: Chest pain type: pleurodynia Qualified Code(s): R07.81 - Pleurodynia (2) Increased CPK level Code(s): R74.8 - ABNORMAL LEVELS OF OTHER SERUM ENZYMES (3) Diabetes Code(s): E11.9 - TYPE 2 DIABETES MELLITUS WITHOUT COMPLICATIONS Qualifiers: Diabetes mellitus type: type 2 Diabetes mellitus alf insulin use: without exterminator termite use Diabetes mellitus complication status: without complication Qualified Code(s): E11.9 - Type 2 diabetes mellitus without complications (4) Elevated troponin Code(s): R74.8 - ABNORMAL LEVELS OF OTHER SERUM ENZYMES (5) HTN (hypertension) Code(s): I10 - ESSENTIAL (PRIMARY) HYPERTENSION Qualifiers: Hypertension type: essential hypertension Qualified Code(s): I10 - Essential (primary) hypertension (6) Pulmonary embolism Code(s): I26.99 - OTHER PULMONARY EMBOLISM WITHOUT ACUTE COR PULMONALE Qualifiers: Pulmonary embolism type: saddle Chronicity: acute Acute cor pulmonale presence: with acute cor pulmonale Qualified Code(s): I26.02 - Saddle embolus of pulmonary artery with acute cor pulmonale Assessment/Plan -myalgias secondary to statin -low suspicion cardiac in nature -case d/w cardiology -ECHO reviewed and normal -stop crestor -safe for discharge
[2018-11-02] MEDS ORDERED: FINASTERIDE 5 MG TABLET (FP) PO SCH (10:00)
[2018-11-02] MEDS ORDERED: APIXABAN 2.5 MG TABLET PO SCH (10:00)
--- NOTE | 2018-11-02 11:50 | ECHO ---
Name: NORMA LACEY Exam:Adult Echocardiogram Study Date: 11/02/2018 10:29 AM Age: 53 yrs Reason For Study: lloyd causey Height: 72 in Weight: 260 lb BSA: 2.4 m2 MMode/2D Measurements & Calculations IVSd: 2.3 cm Ao root diam: 3.1 cm LVIDd: 5.2 cm LA dimension: 4.7 cm LVIDs: 3.1 cm ACS: 2.0 cm LVPWd: 0.98 cm IVSs: 1.5 cm LVPWs: 1.2 cm EDV(Teich): 129.3 ml ESV(Teich): 39.1 ml Doppler Measurements & Calculations MV E max harley: 58.0 cm/sec Ao V2 max: 136.0 cm/sec MV A max harley: 45.2 cm/sec Ao max P.4 mmHg MV E/A: 1.3 Ao V2 mean: 85.4 cm/sec Ao mean P.0 mmHg Ao V2 VTI: 27.0 cm TR max harley: 216.5 cm/sec PI end-d harley: 80.1 cm/sec TR max P.8 mmHg Med Peak E' Harley: 7.0 cm/sec Med E/e': 8.5 Lat Peak E' Harley: 10.5 cm/sec Lat E/e': 5.6 Procedure A complete two-dimensional transthoracic echocardiogram was performed (2D, M-mode, Doppler and color flow Doppler). Left Ventricle The left ventricular size, thickness and function are normal. The left ventricular ejection fraction is normal. Ejection Fraction = 60-65%. The left ventricular wall motion is normal. Right Ventricle The right ventricle is normal in size and function. Atria Normal left and right atrial size and function. Mitral Valve There is no mitral regurgitation noted. Tricuspid Valve There is trace tricuspid regurgitation. Right ventricular systolic pressure is normal. Aortic Valve The aortic valve is trileaflet. No hemodynamically significant valvular aortic stenosis. No aortic regurgitation is present. Pulmonic Valve Trace pulmonic valvular regurgitation. Great Vessels The aortic root is normal size. Pericardium/Pleura There is no pericardial effusion. Interpretation Summary The left ventricular size, thickness and function are normal The right ventricle is normal in size and function. There is trace tricuspid regurgitation. Trace pulmonic valvular regurgitation. MD Lee Nevarez 11/02/2018 11:50 AM
--- NOTE | 2018-11-02 12:39 | CON.CARD ---
Cardiology Consult (text) - Consultation Consultation Note: cc: leg cramps hpi: 53 m hx dm, htn, copd, pe, here with leg cramping. Started on statin 2 wks ago and since then pt notices cramping in calves bl as well as cramping in arms, upper back, and chest. No sob anginal cp, palps dizzy loc pnd orthopnea le edema. Sees dr lira for cardio. pmh: per hpi psh: nc social: ex tob fam: no premature cad, scd ros: per hpi; no nvd, cough, ahumada, vision changes, gib, hematuria dysuria; all others normal meds: Home Medications Medication Instructions Recorded Tamsulosin HCl [Flomax -] 0.4 mg PO DAILY@0830 #30 cap.er.24h 01/10/18 Insulin Glargine,Hum.rec.anlog 25 unit SQ HS 01/22/18 [Basaglar Kwikpen U-100] Finasteride [Proscar -] 5 mg PO DAILY #30 tablet 01/23/18 Apixaban [Eliquis] 2.5 mg PO BID 11/01/18 Rosuvastatin Calcium [Crestor] 10 mg PO DAILY 11/01/18 pe: Vital Signs Period Temp Pulse Resp BP Sys/Wooten Pulse Ox Last 24 Hr 97.6 F-98.2 F 50-83 16-20 104-164/49-92 91-98 nad no jvd rrr s1s2 no mrg cta bl nl eff aaox3 no le e/c/c abd nt nd pos bs no jaundice diaphoresis pos dp pt no carotid bruits Laboratory Last Values WBC 9.4 K/mm3 (4.0-10.0) 11/01/18 21:40 RBC 4.61 M/mm3 (4.00-5.60) 11/01/18 21:40 Hgb 13.4 GM/dL (11.7-16.9) 11/01/18 21:40 Hct 40.6 % (35.4-49) 11/01/18 21:40 MCV 88.2 fl (80-96) 11/01/18 21:40 MCH 29.1 pg (25.7-33.7) 11/01/18 21:40 MCHC 33.0 g/dl (32.0-35.9) 11/01/18 21:40 RDW 13.9 % (11.9-15.9) 11/01/18 21:40 Plt Count 177 K/MM3 (134-434) 11/01/18 21:40 MPV 10.7 fl (7.5-11.1) 11/01/18 21:40 Absolute Neuts (auto) 4.8 K/mm3 (1.5-8.0) 11/01/18 21:40 Neutrophils % 51.1 % (42.8-82.8) 11/01/18 21:40 Lymphocytes % 37.2 % (8-40) 11/01/18 21:40 Monocytes % 8.8 % (3.8-10.2) 11/01/18 21:40 Eosinophils % 2.3 % (0-4.5) 11/01/18 21:40 Basophils % 0.6 % (0-2.0) 11/01/18 21:40 Nucleated RBC % 0 % (0-0) 11/01/18 21:40 PT with INR 12.40 SEC (9.7-13.0) 11/02/18 08:40 INR 1.05 (0.83-1.09) 11/02/18 08:40 PTT (Actin FS) 30.1 SECONDS (25.2-36.5) 11/02/18 08:40 Sodium 140 mmol/L (136-145) 11/02/18 08:40 Potassium 4.0 mmol/L (3.5-5.1) 11/02/18 08:40 Chloride 107 mmol/L (98-107) 11/02/18 08:40 Carbon Dioxide 26 mmol/L (21-32) 11/02/18 08:40 Anion Gap 7 MMOL/L (8-16) L 11/02/18 08:40 BUN 12 mg/dL (7-18) 11/02/18 08:40 Creatinine 1.2 mg/dL (0.55-1.3) 11/02/18 08:40 Creat Clearance w eGFR 62.86 (>60) 11/02/18 08:40 POC Glucometer 115 UNITS (80-120) 11/02/18 07:13 Random Glucose 164 mg/dL (74-106) H 11/02/18 08:40 Hemoglobin A1c % 7.2 % (4.2-6.3) H 11/02/18 08:40 Calcium 8.0 mg/dL (8.5-10.1) L 11/02/18 08:40 Phosphorus 3.5 mg/dL (2.5-4.9) 11/02/18 08:40 Magnesium 1.8 mg/dL (1.8-2.4) 11/02/18 08:40 Total Bilirubin 0.3 mg/dL (0.2-1) 11/02/18 08:40 AST 26 U/L (15-37) 11/02/18 08:40 ALT 69 U/L (13-61) H 11/02/18 08:40 Alkaline Phosphatase 72 U/L (45-117) 11/02/18 08:40 Creatine Kinase 585 U/L (26-308) H 11/02/18 08:40 Creatine Kinase Index 0.5 % (0.0-5.0) 11/02/18 08:40 CK-MB (CK-2) 3.0 ng/mL (0.5-3.6) 11/02/18 08:40 Troponin I 0.17 ng/ml (0.00-0.05) H 11/02/18 08:40 Total Protein 6.5 g/dl (6.4-8.2) 11/02/18 08:40 Albumin 3.3 g/dl (3.4-5.0) L 11/02/18 08:40 Triglycerides 146 mg/dL (0-150) 11/02/18 08:40 Cholesterol 116 mg/dL (50-200) 11/02/18 08:40 Total LDL Cholesterol 66 mg/dL (5-100) 11/02/18 08:40 HDL Cholesterol 35 mg/dL (40-60) L 11/02/18 08:40 TSH 1.87 uIU/ml (0.358-3.74) D 11/02/18 08:40 Free T4 0.85 ng/dl (0.76-1.16) 11/02/18 08:40 ecg: sr/sb, nl intervals, no ischemic changes cta chest: wnl echo 11/2018: nl lv/rv, no sig valve path echo 01/2018: nl lv/rv, no sig valve path, nl rvsp, IASA Echo 06/2017: nl wall thickness. nl lv/rv size/fn. 1+ lae. mild-mod mr. Echo 09/2015: Nl LV/RV, mild-mod MR/TR, RVSP 30-40 MPI 06/19: 10.1 METS. no ischemic ekg changes. moderate sized mild intensity inferior wall ischemia. mild global HK. Mildly depressed EF 46%. MPI 09/2015: 10.4 METS. Non-specific ST abnormalities. Small inf fixed defct with nl wall motion (diaphragmatic attenuation) EF 55% [facility] 06/19 ([place]): normal coronaries. no coronary vasospasm seen. [facility] 2009 [facility]: Vgram EF 60%. patent LM, LAD, LCx. 40% oRCA, relieved by IC NTG but also thought to have partial CAD component a/p: 53 m hx dm, htn, copd, pe, here with leg cramping. leg cramping, body aches, cp, hld: -no signs acs -cta chest wnl -symptoms seem related to statin so dc for now, outpt f/u hx of PEs: -cta chest wnl here -cont ac htn: -stable on ccb coronary vasospasm history, abnormal slow coronary flow on 2016 cath: -vasospasm on cath 2009 when presented with CP--? if on testosterone at that time. was taking a plethora of OTC supplements for wellness and bodybuilding at that time, and continued since. -again with cp 06/2017 and cath then showed no vasospasm but markedly sluggish flow diffusely in coronary bed-->? hyperviscosity 2/2 testosterone (high hct at that time). -off tesosterone since then, hct normalized. -no signs acs here, trops intermediate range with flat trend similar to prior baseline values -cont ccb -echo unremarkable here cardiac nicholas stable for dc
--- NOTE | 2018-11-02 12:44 | EKG ---
Test Reason : Blood Pressure : / mmHG Vent. Rate : 049 BPM Atrial Rate : 049 BPM P-R Int : 168 ms QRS Dur : 090 ms QT Int : 440 ms P-R-T Axes : 073 -13 -12 degrees QTc Int : 397 ms SINUS BRADYCARDIA OTHERWISE NORMAL ECG WHEN COMPARED WITH ECG OF 22-JAN-2018 09:48, NO SIGNIFICANT CHANGE WAS FOUND Confirmed by HIREN JAMES MD ([id number]) on 11/02/2018 12:44:31 PM Referred By: Confirmed By:HIREN JAMES MD
[2018-11-02 15:38] VITALS: BP 110/72; PULSE 68; TEMP 98
--- NOTE | 2018-11-03 15:50 | DS ---
Physical Examination Vital Signs: Vital Signs Temperature 36.7 C 11/02/18 15:37 Pulse Rate 68 11/02/18 15:37 Respiratory Rate 18 11/02/18 15:37 Blood Pressure 110/72 11/02/18 15:37 O2 Sat by Pulse Oximetry (%) 98 11/02/18 15:37 Labs: CBC, BMP 11/01/18 21:40 11/02/18 08:40 Discharge Summary Reason For Visit: ELEVATED TROPONIN LEVEL Hospital Course: Mr Ramos is a pleasant 53 year old male who came in with myalgias. He was recently found to have elevated cpk in the outpatient, it was unclear if this was secondary to his work out regimen or his crestor. He was instructed to stop working out for 2 weeks and return to have his cpk checked. However before this happened he began to have myalgias in his quadracepts, latissmus dorsi, and pectorals. He came in for evaluation and admitted under observation. His cpk remains unchanged from his last check. His troponins were negative, his ECHO was normal. He was seen by cardiology and cleared. He is to stop taking crestor. He is to remain well hydrated. He is safe for discharge home. Condition: Stable - Instructions Diet, Activity, Other Instructions: resume previous diet and activity Referrals: Justin Morales MD [Staff Physician] - Dayan Larose MD [Primary Care Provider] - Disposition: HOME - Home Medications Comprehensive Discharge Medication List: Ambulatory Orders Tamsulosin HCl [Flomax -] 0.4 mg PO DAILY@0830 #30 cap.er.24h 01/10/18 Insulin Glargine,Hum.rec.anlog [Basaglar Kwikpen U-100] 25 unit SQ HS 01/22/18 Finasteride [Proscar -] 5 mg PO DAILY #30 tablet 01/23/18 Apixaban [Eliquis] 2.5 mg PO BID 11/01/18 Amlodipine Besylate [Norvasc -] 5 mg PO DAILY #30 tablet 11/02/18
== END 2018-11-02 15:45 | disposition home or self-care (01) ==
LOC: JER 21:04 → JERBED 11-02 03:56
PROVIDERS: ADMIT Internal Medicine; ATTEND Internal Medicine
PROC: B44HZZZ Ultrasonography of Bilateral Lower Extremity Arteries (ICD-10-PCS; principal; 2018-11-02)
PROC: 3E0337Z Introduction of Electrolytic and Water Balance Substance into Peripheral Vein, Percutaneous Approach (ICD-10-PCS; 2018-11-02)
DX: R77.8 Other specified abnormalities of plasma proteins (principal); R74.8 Abnormal levels of other serum enzymes; R07.81 Pleurodynia; M79.10 Myalgia, unspecified site; I10 Essential (primary) hypertension; E11.9 Type 2 diabetes mellitus without complications; N40.0 Benign prostatic hyperplasia without lower urinary tract symptoms; J44.9 Chronic obstructive pulmonary disease, unspecified; I26.02 Saddle embolus of pulmonary artery with acute cor pulmonale; Z86.718 Personal history of other venous thrombosis and embolism
CPT/HCPCS: 36415; 71275-TC; 80053; 80061; 82550; 82553; 82962; 83036; 83721; 83735; 84100; 84439; 84443; 84484; 85025; 85610; 85730; 93005; 93010; 93306-TC; 93970-TC; 99285-25; G0378; J7030

== ENCOUNTER 2019-04-13 18:40 | Emergency (ER) | payer OTHER ==
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
[2019-04-13 19:06] VITALS: BP 120/70; PULSE 86; TEMP 98; BMI 34.5
[2019-04-13] MEDS ORDERED: SODIUM CHLORIDE 0.9% 500 ML INFUS.BAG IV ONE (19:35)
[2019-04-13] MEDS ORDERED: morphine CARPU-JECT 4 MG/1 ML DISP.SYRIN IVPUSH ONE (19:35)
[2019-04-13] MEDS ORDERED: ACETAMINOPHEN 1000 MG/100 ML VIAL (NON FORMULARY) IVPB ONE (19:35)
[2019-04-13] MEDS ORDERED: morphine SULFATE 4 MG/ML VIAL ONE (19:44)
[2019-04-13] MEDS ORDERED: ACETAMINOPHEN INJECTION 100 ML IVPB ONE (19:44)
[2019-04-13 19:51] LABS: BASO % 0.8 % (0-2.0); EOS % 1.1 % (0-4.5); HEMATOCRIT 40.6 % (35.4-49); HEMOGLOBIN 13.1 GM/dL (11.7-16.9); LYMPH % 33.7 % (8-40); MCHC 32.3 g/dl (32.0-35.9); MEAN CELL VOLUME 86.8 fl (80-96); MEAN PLT VOLUME 10.1 fl (7.5-11.1); MONO % 8.4 % (3.8-10.2); PLATELET COUNT 232 K/MM3 (134-434); RBC 4.68 M/mm3 (4.00-5.60); WHITE BLOOD COUNT 9.1 K/mm3 (4.0-10.0)
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
[2019-04-13 20:15] LABS: ALBUMIN 3.7 g/dl (3.4-5.0); BILIRUBIN,TOTAL 0.4 mg/dL (0.2-1); BLOOD UREA NITROGEN 14.9 mg/dL (7-18); CALCIUM 8.9 mg/dL (8.5-10.1); CREATININE 1.4 mg/dL (0.55-1.3); TOT PROT 7.6 g/dl (6.4-8.2)
[2019-04-13] MEDS ORDERED: ASPIRIN 81 MG CHEWABLE TABLETS PO ONE (20:33)
[2019-04-13] MEDS ORDERED: ASPIRIN 81 MG CHEWABLE TABLETS ONE (22:18)
--- NOTE | 2019-04-14 14:56 | EKG ---
Test Reason : Blood Pressure : / mmHG Vent. Rate : 051 BPM Atrial Rate : 051 BPM P-R Int : 152 ms QRS Dur : 088 ms QT Int : 418 ms P-R-T Axes : 043 -01 -22 degrees QTc Int : 385 ms SINUS BRADYCARDIA NONSPECIFIC T WAVE ABNORMALITY ABNORMAL ECG WHEN COMPARED WITH ECG OF 13-APR-2019 23:28, NO SIGNIFICANT CHANGE WAS FOUND Confirmed by Ritu Boone ([id number]) on 04/14/2019 2:56:26 PM Referred By: Confirmed By:Ritu Boone
--- NOTE | 2019-04-14 14:57 | EKG ---
Test Reason : Blood Pressure : / mmHG Vent. Rate : 053 BPM Atrial Rate : 053 BPM P-R Int : 164 ms QRS Dur : 082 ms QT Int : 432 ms P-R-T Axes : 069 -07 -18 degrees QTc Int : 405 ms SINUS BRADYCARDIA NONSPECIFIC T WAVE ABNORMALITY ABNORMAL ECG WHEN COMPARED WITH ECG OF 01-NOV-2018 21:53, NONSPECIFIC T WAVE ABNORMALITY NOW EVIDENT IN ANTERIOR LEADS Confirmed by Ritu Boone ([id number]) on 04/14/2019 2:56:38 PM Referred By: Confirmed By:Ritu Boone
== END 2019-04-14 01:15 | disposition home or self-care (01) ==
LOC: JER 18:40
PROC: 3E033NZ Introduction of Analgesics, Hypnotics, Sedatives into Peripheral Vein, Percutaneous Approach (ICD-10-PCS; principal; 2019-04-13)
PROC: 3E033NZ Introduction of Analgesics, Hypnotics, Sedatives into Peripheral Vein, Percutaneous Approach (ICD-10-PCS; 2019-04-13)
DX: R10.31 Right lower quadrant pain (principal); R74.8 Abnormal levels of other serum enzymes; I25.111 Atherosclerotic heart disease of native coronary artery with angina pectoris with documented spasm; I12.9 Hypertensive chronic kidney disease with stage 1 through stage 4 chronic kidney disease, or unspecified chronic kidney disease; E11.22 Type 2 diabetes mellitus with diabetic chronic kidney disease; N18.9 Chronic kidney disease, unspecified; Z79.4 Long term (current) use of insulin; N40.0 Benign prostatic hyperplasia without lower urinary tract symptoms; Z86.711 Personal history of pulmonary embolism; Z79.01 Long term (current) use of anticoagulants; Z87.09 Personal history of other diseases of the respiratory system
CPT/HCPCS: 36415; 71260-TC; 74177-TC; 80053; 82550; 82553; 84484; 85025; 85730; 93005; 93010; 96374; 96375; 99282-25; J0131

== ENCOUNTER 2019-09-17 10:51 | Emergency (ER) | payer OTHER ==
[2019-09-17 11:09] VITALS: TEMP 97.9; BMI 33.9
--- NOTE | 2019-09-17 12:25 | PDOC ---
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 He states sometimes when he walks he feels tired but more often when he works out at the gym he does not experience his chest pain and SOB. The patient reports that he is concerned about COVID-19 and knows he has multiple medical conditions so he wanted to make sure he is okay. He left his family for the week and is living in the [facility] in [facility] cause he wants to isolate himself from his childrens friends who are off from school and coming over. Denies recent fevers, chills, infections, nausea, vomiting, diaphoresis, radiation of his chest pain, recent travel, numbness, tingling, weakness, or leg swelling. PCP: Dayan Larose Cards: Dr. Morales PSH: None reported Social Hx: Former smoker quit 15 years ago. Denies current toxic habits. In dependent in ADL. Allergies: NKA, NKDA Past History - Past Medical History Allergies/Adverse Reactions: Allergies Allergy/AdvReac Type Severity Reaction Status Date / Time No Known Allergies Allergy Verified 04/13/19 19:06 Home Medications: Ambulatory Orders Insulin Glargine,Hum.rec.anlog [Basaglar Kwikpen U-100] 20 unit SQ HS 01/22/18 Apixaban [Eliquis] 2.5 mg PO BID 11/01/18 Tramadol HCl/Acetaminophen [Tramadol-Acetaminophn 37.5-325] 1 each PO TID PRN 09/17/19 Asthma: Yes Cardiac Disorders: Yes (Vaso spams) COPD: No DVT: Yes (PE,) Diabetes: Yes (NIDDM) Disorders: Yes - Immunization History Immunization Up to Date: Yes - Psycho Social/Smoking Cessation Hx Smoking History: Smoker current status UNK Have you smoked in the past 12 months: No If you are a former smoker, when did you quit?: 15 yrs ago Hx Alcohol Use: No Drug/Substance Use Hx: No Substance Use Type: None Hx Substance Use Treatment: No Review of Systems - Review of Systems Able to Perform ROS?: Yes Comments:: CONSTITUTIONAL: Absent: fever, no chills, no fatigue EYES: Absent: visual changes ENT: Absent: ear pain, no sore throat CARDIOVASCULAR: Present: Chest pain Absent: no palpitations RESPIRATORY: Present: SOB Absent: cough GI: Absent: abdominal pain, no nausea, no vomiting, no constipation, no diarrhea GENITOURINARY: Absent: dysuria, no frequency, no hematuria MUSKULOSKELETAL: Absent: back pain, no arthralgia, no myalgia SKIN: Absent: rash NEURO: Absent: headache *Physical Exam - Vital Signs Last Vital Signs Temp Pulse Resp BP Pulse Ox 97.9 F 72 18 127/87 98 09/17/19 11:08 09/17/19 11:08 09/17/19 11:08 09/17/19 11:08 09/17/19 11:08 - Physical Exam GENERAL: Well-appearing, well-nourished. No apparent distress. HEENT: Normocephalic, atraumatic. PERRL, EOM intact. CARDIOVASCULAR: Normal S1, S2. Regular rate and rhythm. PULMONARY: No evidence of respiratory distress. Lungs clear to auscultation bilaterally. No wheezing, rales or rhonchi. ABDOMEN: Soft, non-distended, non-tender. EXTREMITIES: Normal ROM in all four extremities. No gross deformities. SKIN: Warm, dry. No rash NEUROLOGICAL: No focal neurological deficits. ED Treatment Course - LABORATORY CBC & Chemistry Diagram: 09/17/19 12:20 09/17/19 12:20 Medical Decision Making - Medical Decision Making Reinier Ramos is a pleasant 54 yo M w a hx of saddle pulmonary embolus on apixaban, COPD, IDDM, BPH, CKD, CAD, Coronary artery vasospasms, rhabdomyolysis, who presents to the [facility] er with 2 days of on and off lest sided chest pain occasionally worsened by exertion. He states sometimes when he walks he feels tired but more often when he works out at the gym he does not experience his chest pain and SOB. The patient reports that he is concerned about COVID-19 and knows he has multiple medical conditions so he wanted to make sure he is okay. He left his family for the week and is living in the [facility] in [place] because he wants to isolate himself from his childrens friends who are off from school and coming over. Denies recent fevers, chills, infections, nausea, vomiting, diaphoresis, radia tion of his chest pain, recent travel, numbness, tingling, weakness, or leg swelling. Vital Signs Temp Pulse Resp BP Pulse Ox 97.9 F 72 18 127/87 98 09/17/19 11:08 09/17/19 11:08 09/17/19 11:08 09/17/19 11:08 09/17/19 11:08 DDx IBNLT: Arrhythmia, ACS, electrolyte/metabolic disturbance, heart failure, PNA Plan: Labs, XR, EKG, re-assess EKG: NS rate of 60, narrow complexes, normal axis, no hypertrophy, no ST elevations or depressions, non-specific T-wave abnormality which was present 04/14/19 Labs: Cbc and coags normal. Trop elevated at 0.11, this appears to be patient's baseline. He says he always has "A troponin leak" XR: No acute pathology Re-assessment: Patient feels better in the ER. Has been asymptomatic for 3 hours. We walked around the ED 4 times at a fast pace and the chest pain was not reproducible Disposition: Home with PCP and cards follow up Discharge - Discharge Information Problems reviewed: Yes Clinical Impression/Diagnosis: Shortness of breath Condition: Improved Disposition: HOME - Admission No - Follow up/Referral Referrals: Dayan Larose MD [Primary Care Provider] - Justin Morales MD [Staff Physician] - - Patient Discharge Instructions Patient Printed Discharge Instructions: DI for Shortness of Breath Additional Instructions: You came into the ER with shortness of breath for the past 2 days. We looked at your bloodwork and found no abnormalities aside from an elevated troponin which appears to be your baseline. 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 Come back to the ER immediately with any new or worsening concerns. Thank you for coming to the [facility]. We hope you feel better soon! Print Language: DJIBOUTIAN - Post Discharge Activity
[2019-09-17 12:30] LABS: BASO % 0.6 % (0-2.0); EOS % 1.6 % (0-4.5); HEMOGLOBIN 13.9 GM/dL (11.7-16.9); LYMPH % 28.9 % (8-40); MCH 28.6 pg (25.7-33.7); MCHC 33.1 g/dl (32.0-35.9); MEAN CELL VOLUME 86.4 fl (80-96); MEAN PLT VOLUME 10.3 fl (7.5-11.1); MONO % 6.8 % (3.8-10.2); NEUT % 62.1 % (42.8-82.8); PLATELET COUNT 213 K/MM3 (134-434); RBC 4.87 M/mm3 (4.00-5.60); RDW 14.2 % (11.9-15.9); WHITE BLOOD COUNT 6.7 K/mm3 (4.0-10.0)
[2019-09-17 12:37] LABS: INR 1.01 (0.83-1.09); PROTHROMBIN TIME (PATIENT) 11.9 SEC (9.7-13.0)
--- NOTE | 2019-09-17 12:41 | PDOC ---
Attending Attestation - Resident Resident Name: Georges Stoverian - ED Attending Attestation I have performed the following: I have examined & evaluated the patient, The case was reviewed & discussed with the resident, I agree w/resident's findings & plan, Exceptions are as noted - HPI HPI: 54 yo M history saddle PE (on apixaban), COPD, DM, BPH, CKD, CAD presents with 2 day history of L-sided cp. He said it is worsened by exertion at times, but at other times, it is not (for instance, it is not worse at the gym). Denies cough, fever, congestion. - Physicial Exam PE: GENERAL: Awake, alert, and fully oriented, in no acute distress HEAD: No signs of trauma EYES: PERRLA, EOMI, sclera anicteric, conjunctiva clear ENT: Auricles normal inspection, hearing grossly normal, nares patent, oropharynx clear without exudates. Moist mucosa NECK: Normal ROM, supple, no lymphadenopathy, JVD, or masses LUNGS: Breath sounds equal, clear to auscultation bilaterally. No wheezes, and no crackles HEART: Regular rate and rhythm, normal S1 and S2, no murmurs, rubs or gallops ABDOMEN: Soft, nontender, normoactive bowel sounds. No guarding, no rebound. No masses EXTREMITIES: Normal range of motion, no edema. No clubbing or cyanosis. No cords, erythema, or tenderness NEUROLOGICAL: Cranial nerves II through XII grossly intact. Normal speech, normal gait. Motor and sensation intact SKIN: Warm, dry, normal turgor, no rashes or lesions noted. - Medical Decision Making Pt is well-appearing, afebrile. EKG no acute changes. CXR clear. Labs at baseline. It has been more than 3 hours, would expect an elevation in troponin above baseline at this point. Stable for DC home, outpatient f/u. Discharge - Discharge Information Problems reviewed: Yes Clinical Impression/Diagnosis: Shortness of breath Condition: Improved Disposition: HOME - Follow up/Referral Referrals: Justin Morales MD [Staff Physician] - Dayan Larose MD [Primary Care Provider] - - Patient Discharge Instructions Patient Printed Discharge Instructions: DI for Shortness of Breath Additional Instructions: You came into the ER with shortness of breath for the past 2 days. We looked at your bloodwork and found no abnormalities aside from an elevated troponin which appears to be your baseline. You must follow up with your butcher or smallgoods maker in the next 24 to 48 hours to make sure you are feeling well and getting better. Come back to the ER immediately with any new or worsening concerns. Thank you for coming to the [facility] ER. We hope you feel better soon! Print Language: PITCAIRN ISLANDER - Post Discharge Activity
[2019-09-17 13:08] LABS: ALBUMIN 3.6 g/dl (3.4-5.0); BILIRUBIN,TOTAL 0.2 mg/dL (0.2-1); BLOOD UREA NITROGEN 13.3 mg/dL (7-18); CALCIUM 8.5 mg/dL (8.5-10.1); CREATININE 1.2 mg/dL (0.55-1.3); N-TERMINAL BNP 9.7 pg/ml (5-125); POTASSIUM 4.6 mmol/L (3.5-5.1); TOT PROT 7.8 g/dl (6.4-8.2)
[2019-09-17 14:31] VITALS: BP 134/78; PULSE 82
--- NOTE | 2019-09-17 16:06 | EKG ---
Test Reason : Blood Pressure : / mmHG Vent. Rate : 060 BPM Atrial Rate : 060 BPM P-R Int : 154 ms QRS Dur : 086 ms QT Int : 390 ms P-R-T Axes : 083 -03 -32 degrees QTc Int : 390 ms NORMAL SINUS RHYTHM NONSPECIFIC T WAVE ABNORMALITY ABNORMAL ECG WHEN COMPARED WITH ECG OF 14-APR-2019 00:40, NO SIGNIFICANT CHANGE WAS FOUND Confirmed by CAROLE KOHLER MD ([id number]) on 09/17/2019 4:06:05 PM Referred By: Confirmed By:CAROLE KOHLER MD
== END 2019-09-17 14:00 | disposition home or self-care (01) ==
LOC: JER 10:51
DX: R06.02 Shortness of breath (principal); I25.10 Atherosclerotic heart disease of native coronary artery without angina pectoris; E10.22 Type 1 diabetes mellitus with diabetic chronic kidney disease; N18.9 Chronic kidney disease, unspecified; Z79.4 Long term (current) use of insulin; J44.9 Chronic obstructive pulmonary disease, unspecified; N40.0 Benign prostatic hyperplasia without lower urinary tract symptoms; M62.82 Rhabdomyolysis; Z86.711 Personal history of pulmonary embolism; Z79.01 Long term (current) use of anticoagulants
CPT/HCPCS: 36415; 71045-TC-FY; 80053; 82550; 82553; 83880; 84484; 85025; 85610; 93005; 93010; 99285-25

== ENCOUNTER 2021-07-25 22:10 | Inpatient (IN) | payer OTHER ==
[2021-07-25 22:20] VITALS: BMI 33.2
[2021-07-25] MEDS ORDERED: LACTATED RINGERS SOLUTION 1,000 ML/1,000 ML INFUS.BAG IV ONE (22:47)
[2021-07-25 22:56] LABS: VENOUS BASE EXCESS -0.5 mmol/L (-2-2); VENOUS O2 SATURATION 92.3 % (70-80); VENOUS PCO2 39.7 mmHg (38-52); VENOUS PH 7.401 (7.310-7.410)
[2021-07-25 22:58] LABS: BASO % 0.4 % (0-2.0); EOS % 1.4 % (0-4.5); HEMATOCRIT 40.3 % (35.4-49); HEMOGLOBIN 13.2 GM/dL (11.7-16.9); LYMPH % 35.7 % (8-40); MCH 28.1 pg (25.7-33.7); MCHC 32.7 g/dl (32.0-35.9); MEAN CELL VOLUME 85.9 fl (80-96); MEAN PLT VOLUME 10.7 fl (7.5-11.1); MONO % 6.9 % (3.8-10.2); NEUT % 55.6 % (42.8-82.8); PLATELET COUNT 186 10^3/uL (134-434); RDW 13.1 % (11.9-15.9); WHITE BLOOD COUNT 7.7 K/mm3 (4.0-10.0)
[2021-07-25 23:00] LABS: EPI CELLS 0 /uL (0-25.1); HYALINE CASTS 0 /uL (0-3.1); PH,URINE 5.5 (5.0-8.0); URINE APPEARANCE CLEAR; URINE BILIRUBIN NEGATIVE (NEGATIVE); URINE COLOR YELLOW; URINE GLUCOSE (UA) 3+ (NEGATIVE); URINE KETONE NEGATIVE (NEGATIVE); URINE LEUK ESTERASE NEGATIVE (NEGATIVE); URINE NITRITE POSITIVE (NEGATIVE); URINE PROTEIN NEGATIVE (NEGATIVE); URINE RBC 10 /uL (0-23.9); URINE UROBILINOGEN 0.2 mg/dL (0.2-1.0)
[2021-07-25 23:06] LABS: INR 0.91 (0.83-1.09); PROTHROMBIN TIME (PATIENT) 10.4 SEC (9.7-13.0)
[2021-07-25 23:09] LABS: ACTIVATED PTT 27.3 SECONDS (25.2-36.5)
[2021-07-25 23:21] LABS: URINE BACTERIA 43.8 /uL (0-1359); URINE WBC 131.6 /uL (0-25.8)
[2021-07-25] MEDS ORDERED: CIPROFLOXACIN 400 MG/D5W 400 MG/200 ML IVPB IVPB ONE (23:28)
[2021-07-25 23:31] LABS: CALCIUM 8.7 mg/dL (8.5-10.1)
[2021-07-25 23:32] LABS: ALBUMIN 3.5 g/dl (3.4-5.0); ANION GAP 9 MMOL/L (8-16); BLOOD UREA NITROGEN 18.3 mg/dL (7-18); CHLORIDE 102 mmol/L (98-107); CO2 25 mmol/L (21-32); SODIUM 136 mmol/L (136-145)
[2021-07-25 23:35] LABS: CREATININE 1.5 mg/dL (0.55-1.3); SGOT/AST 31 U/L (15-37); SGPT/ALT 55 U/L (13-61)
[2021-07-25 23:36] LABS: BILIRUBIN,TOTAL 0.2 mg/dL (0.2-1); TOT PROT 7.1 g/dl (6.4-8.2)
[2021-07-25 23:38] LABS: ALK PHOS 115 U/L (45-117)
[2021-07-26 00:58] LABS: GLUCOSE,RANDOM 652 mg/dL (74-106)
[2021-07-26] MEDS ORDERED: INSULIN REGULAR HUMAN 100 UNITS/ML *VIAL IVPUSH ONE (01:29)
[2021-07-26] MEDS ORDERED: INSULIN REGULAR HUMAN 100 UNITS/ML *VIAL ONE (01:39)
[2021-07-26] MEDS ORDERED: LACTATED RINGERS SOLUTION 1,000 ML/1,000 ML INFUS.BAG IV ONE (01:49)
[2021-07-26] MEDS ORDERED: INSULIN (NOVOLOG) ASPART 100 UNITS/ML 10ML VIAL SQ ONE (03:24)
[2021-07-26] MEDS: LACTATED RINGERS SOLUTION 1,000 ML/1,000 ML INFUS.BAG IV SCH (03:30)
[2021-07-26 05:46] LABS: CALCIUM 8.6 mg/dL (8.5-10.1)
[2021-07-26 05:47] LABS: BLOOD UREA NITROGEN 16.6 mg/dL (7-18)
[2021-07-26 05:50] LABS: CREATININE 1.2 mg/dL (0.55-1.3)
[2021-07-26] MEDS: ACETAMINOPHEN 325 MG TABLET (FP) PO PRN ×2 (08:30→18:42)
[2021-07-26] MEDS ORDERED: ACETAMINOPHEN 325 MG TABLET (FP) ONE ×2 (09:26→18:23)
[2021-07-26] MEDS ORDERED: ONDANSETRON 4 MG/2 ML VIAL IVPUSH PRN (17:38)
[2021-07-26] MEDS ORDERED: ACETAMINOPHEN 325 MG TABLET (FP) PO PRN (17:38)
[2021-07-26] MEDS ORDERED: INSULIN (LEVEMIR) 100 UNITS/ML UNITS SQ SCH (22:00)
[2021-07-26] MEDS ORDERED: CIPROFLOXACIN 400 MG/D5W 400 MG/200 ML IVPB IVPB SCH (22:00)
[2021-07-26] MEDS ORDERED: PATIENT'S OWN MEDICATION (NON-FORMULARY) (Insulin Glargine,Hum.Rec.Anlog [Basaglar Kwikpen SQ SCH (22:00)
[2021-07-26] MEDS ORDERED: INSULIN (NOVOLOG) ASPART 100 UNITS/ML 10ML VIAL SQ SCH (22:00)
[2021-07-26] MEDS ORDERED: TAMSULOSIN HCL 0.4 MG CAP ONE (22:36)
[2021-07-26] MEDS ORDERED: APIXABAN 2.5 MG TABLET ONE (22:36)
[2021-07-26] MEDS: TAMSULOSIN HCL 0.4 MG CAP PO SCH (22:44)
[2021-07-26] MEDS: APIXABAN 2.5 MG TABLET PO SCH (22:44)
[2021-07-27] MEDS: LACTATED RINGERS SOLUTION 1,000 ML/1,000 ML INFUS.BAG IV SCH (03:32)
[2021-07-27 07:58] VITALS: BP 124/57; PULSE 51; TEMP 97.8
[2021-07-27] MEDS ORDERED: INSULIN (LEVEMIR) 100 UNITS/ML UNITS SQ SCH (08:00)
[2021-07-27 08:51] LABS: HEMATOCRIT 40.4 % (35.4-49); MCH 27.6 pg (25.7-33.7); MCHC 32.2 g/dl (32.0-35.9); MEAN CELL VOLUME 85.8 fl (80-96); MEAN PLT VOLUME 10.4 fl (7.5-11.1); PLATELET COUNT 187 10^3/uL (134-434); RDW 13.6 % (11.9-15.9); WHITE BLOOD COUNT 6.6 K/mm3 (4.0-10.0)
[2021-07-27 09:19] LABS: BLOOD UREA NITROGEN 10.1 mg/dL (7-18); CALCIUM 8.4 mg/dL (8.5-10.1)
[2021-07-27 09:23] LABS: CREATININE 1.1 mg/dL (0.55-1.3)
[2021-07-27] MEDS ORDERED: EZETIMIBE 10 MG TABLET (FP) PO SCH (10:00)
[2021-07-27] MEDS ORDERED: APIXABAN 2.5 MG TABLET PO SCH (10:00)
[2021-07-27] MEDS ORDERED: metFORMIN HCL 500 MG TABLET (FP) PO SCH (10:00)
[2021-07-27] MEDS ORDERED: FINASTERIDE 5 MG TABLET (FP) PO SCH (10:00)
[2021-07-27] MEDS ORDERED: APIXABAN 2.5 MG TABLET ONE (10:38)
[2021-07-27] MEDS ORDERED: TAMSULOSIN HCL 0.4 MG CAP ONE (10:39)
[2021-07-27] MEDS ORDERED: metFORMIN HCL 500 MG TABLET (FP) ONE (10:39)
[2021-07-27] MEDS: APIXABAN 2.5 MG TABLET PO SCH (10:45)
[2021-07-27] MEDS: TAMSULOSIN HCL 0.4 MG CAP PO SCH (10:50)
[2021-07-27] MEDS ORDERED: INSULIN SLIDING SCALE (NOVOLOG) 1 VIAL SQ SCH (11:00)
[2021-07-27] MEDS ORDERED: ONDANSETRON 4 MG/2 ML VIAL IVPUSH PRN (17:25)
== END 2021-07-27 14:23 | disposition home or self-care (01) | DRG 420 ==
LOC: JER 22:10 → MERGE 22:39 → OBSVTOIN 22:39 → JERBED 22:39 → UNDOADMOB 23:39 → JERBED 23:39
PROVIDERS: ADMIT Internal Medicine; ATTEND Internal Medicine
DX: E11.00 Type 2 diabetes mellitus with hyperosmolarity without nonketotic hyperglycemic-hyperosmolar coma (NKHHC) (principal); N17.9 Acute kidney failure, unspecified; M62.82 Rhabdomyolysis; I48.91 Unspecified atrial fibrillation; N39.0 Urinary tract infection, site not specified; E86.0 Dehydration; I10 Essential (primary) hypertension; N40.0 Benign prostatic hyperplasia without lower urinary tract symptoms; J44.9 Chronic obstructive pulmonary disease, unspecified; Z86.711 Personal history of pulmonary embolism; Z79.01 Long term (current) use of anticoagulants; Z79.4 Long term (current) use of insulin; R77.8 Other specified abnormalities of plasma proteins
CPT/HCPCS: 36415; 71045-TC-FY; 80048; 80053; 81003; 82010; 82550; 82553; 82803; 82962; 83036; 83930; 84484; 85025; 85027; 85610; 85730; 87086; 93005; 93010; 99285-25; C9803; U0003; U0005

== ENCOUNTER 2021-10-23 12:41 | Emergency (ER) | payer OTHER ==
[2021-10-23 12:57] VITALS: BP 132/69; PULSE 58; TEMP 97.6; BMI 33.9
[2021-10-23] MEDS ORDERED: ACETAMINOPHEN 325 MG TABLET (FP) PO ONE (14:05)
[2021-10-23] MEDS ORDERED: ACETAMINOPHEN 325 MG TABLET (FP) ONE (14:31)
[2021-10-23 14:41] LABS: BASO % 0.7 % (0-2.0); EOS % 3.3 % (0-4.5); HEMATOCRIT 41.3 % (35.4-49); HEMOGLOBIN 13.5 GM/dL (11.7-16.9); LYMPH % 42.2 % (8-40); MCH 28.3 pg (25.7-33.7); MCHC 32.8 g/dl (32.0-35.9); MEAN CELL VOLUME 86.5 fl (80-96); MEAN PLT VOLUME 10.2 fl (7.5-11.1); MONO % 8.6 % (3.8-10.2); NEUT % 45.2 % (42.8-82.8); PLATELET COUNT 245 10^3/uL (134-434); RBC 4.77 M/mm3 (4.00-5.60); RDW 13.9 % (11.9-15.9); WHITE BLOOD COUNT 7.6 K/mm3 (4.0-10.0)
[2021-10-23 14:48] LABS: INR 1.09 (0.83-1.09); PROTHROMBIN TIME (PATIENT) 12.5 SEC (9.7-13.0)
[2021-10-23 14:50] LABS: ACTIVATED PTT 34.3 SECONDS (25.2-36.5)
[2021-10-23 15:01] LABS: CHLORIDE 106 mmol/L (98-107); SODIUM 139 mmol/L (136-145)
[2021-10-23 15:03] LABS: CALCIUM 9.2 mg/dL (8.5-10.1)
[2021-10-23 15:04] LABS: ALBUMIN 3.6 g/dl (3.4-5.0); ANION GAP 5 MMOL/L (8-16); BLOOD UREA NITROGEN 12.5 mg/dL (7-18); CO2 29 mmol/L (21-32); GLUCOSE,RANDOM 75 mg/dL (74-106)
[2021-10-23 15:07] LABS: CREATININE 1.2 mg/dL (0.55-1.3); SGOT/AST 32 U/L (15-37); SGPT/ALT 37 U/L (13-61)
[2021-10-23 15:08] LABS: TOT PROT 7.9 g/dl (6.4-8.2)
[2021-10-23 15:09] LABS: BILIRUBIN,TOTAL 0.4 mg/dL (0.2-1)
[2021-10-23 15:10] LABS: ALK PHOS 79 U/L (45-117)
[2021-10-23 17:09] LABS: CHLORIDE 107 mmol/L (98-107); SODIUM 139 mmol/L (136-145)
[2021-10-23 17:10] LABS: CALCIUM 8.8 mg/dL (8.5-10.1)
[2021-10-23 17:11] LABS: ANION GAP 9 MMOL/L (8-16); BLOOD UREA NITROGEN 12.4 mg/dL (7-18); CO2 24 mmol/L (21-32); GLUCOSE,RANDOM 76 mg/dL (74-106)
[2021-10-23 17:14] LABS: CREATININE 1.1 mg/dL (0.55-1.3)
== END 2021-10-23 18:35 | disposition home or self-care (01) ==
LOC: JER 12:41
DX: R07.9 Chest pain, unspecified (principal); R06.09 Other forms of dyspnea
CPT/HCPCS: 36415; 71275-TC; 80048; 80053; 82962; 84484; 85025; 85610; 85730; 93005; 93010; 99285-25; Q9967